=== PATIENT | female | born 1950 | race Caucasian/White ===

== ENCOUNTER 2020-12-09 20:14 | Inpatient (IN) | payer OTHER ==
--- OUTSIDE RECORDS SUMMARY | 2020-12-09 20:18 | XMS REPORT | Continuity of Care Document ---
:1950 Author Organization [facility] t Address [address] [place] [address] Care Team Providers Name Role Phone Jose Zambrano MD Primary Care Physician Borjas Attending Clinician Unavailable JULIA Attending Clinician Unavailable Doctor Unassigned, Name Attending Clinician Unavailable Mary Ann THAKUR, L Attending Clinician Payers Payer Name Policy Type Policy Effective Date Expiration Date Sour ce Number HUMANA [id number] 2020 [facility] MEDICAREHUMANA 00:00:00 Hospital MEDICARE PPO/PFFS/ERS [id number] 2020 -PresentPPO Problems Condition Condition Condition Status Onset Resolution Last Treating Co mments Source Name Details Category Date Date Treatment Clinician Date Hallux Hallux Disease Active 2017-04 [facility] valgus, valgus, 0-26 st left left 00:00: Hospita 00 l 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 Family History Family Member Diagnosis Comments Start Date Stop Date Source Natural father Cancer [facility] Natural mother Cancer [facility] Natural sister Cancer [facility] Social History Social Habit Start Date Stop Date Quantity Comments Source Tobacco use and 2020-07-15 2020-07-15 Never used [facility] exposure 00:00:00 00:00:00 Hospital Alcohol intake 2020-07-15 2020-07-15 Current [facility] 00:00:00 00:00:00 non-drinker of Hospital alcohol (finding) Tobacco Comment 2018-02-14 2018-02-14 Never used [facility] 00:00:00 00:00:00 [facility] Sex Ass[birth year] [facility] 00:00:00 00:00:00 Hospital Smoking Status Start Date Stop Date Source Never smoker [facility] Medications Ordered Filled Start Stop Current Ordering Indication Dosage Frequency Signature Comments Components Source Medication Medication Date Date Medication? Clinician (SIG) Name Name clopidogrel Yes 300mg Take 300 M ethodi (PLAVIX) 3-[address] 300 mg 13:45: mouth Hospita tablet 09 once. l metoprolol Yes 25mg Q.5D Take 25 mg M ethodi tartrate 3-[address] (LOPRESSOR) 13:45: (two) Hospi ta 25 mg 09 times a l tablet day. levothyroxi Yes 50ug QD Take 50 Met hodi ne 3-[address] (SYNTHROID, 13:45: mouth Hospi ta LEVOXYL) 50 09 every l mcg tablet morning. pantoprazol Yes 20mg QD Take 20 mg [facility] e 3-[address] (PROTONIX) 13:45: daily. Hospi ta 20 MG EC 09 l tablet pravastatin Yes 20mg QD Take 20 mg [facility] (PRAVACHOL) 3-[address] 20 MG 13:45: nightly. Hospita tablet 09 l diclofenac 2017-04 Yes Q.25D Apply Metho di (VOLTAREN) 0-[address] 1 % gel 00:00: 4 (four) Hospit a 00 times a l day. Apply 1-2 grams to affected area 3-4 times daily. Procedures Procedure Date / Time Performed Performing Clinician Skylar knight BONE DENSITY 2020-07-16 18:00:27 [facility] XR FOOT 3 VW BILATERAL 2020-07-15 13:18:38 Phil Dumont Meth odist [facility] Plan of Care Planned Activity Planned Date Details Comments Source Future Scheduled Test COVID-19 VACCINE (1) [facility] [code = COVID-19 VACCINE (1)] Future Scheduled Test Hepatitis C screening [facility] (procedure) [code = 739391339] Future Scheduled Test BREAST CANCER SCREENING [facility] [code = BREAST CANCER SCREENING] Future Scheduled Test COLONOSCOPY SCREENING [facility] [code = COLONOSCOPY SCREENING] Future Scheduled Test SHINGLES VACCINES (#1) [facility] [code = SHINGLES VACCINES (#1)] Future Scheduled Test 65+ PNEUMOCOCCAL Me [facility] VACCINE (1 of 1 - PPSV23) [code = 65+ PNEUMOCOCCAL VACCINE (1 of 1 - PPSV23)] Future Scheduled Test INFLUENZA VACCINE [code [facility] = INFLUENZA VACCINE] Encounters Start End Encounter Admission Attending Care Care Encounter Source Date/Time Date/Time Type Type Clinicians Facility Department ID 2020-08-03 2020-08-03 Nahun Borjas Shasha 1.2.840.1 [id number] [facility] 00:00:00 00:00:[address] 3.430.2.7 Hospit a .3.137748 l .8 2020-07-16 2020-07-16 Outpatient [facility] [id number] 00:00:00 00:00:[address] PHIL [address] 2020-07-15 2020-07-15 Office Julia, 1.2.840.1 [id number] Method[facility] 08:04:21 09:31:56 Visit Phil Ojeda 17338.1.[address] 3.430.2.7 Hospit a .3.185695 l .8 2020-07-15 2020-07-15 Outpatient [facility] [id number] 00:00:00 00:00:00 PHIL [address] 2020-07-15 2020-07-15 Travel 1.2.840.1 [id number] [id number] [facility] 00:00:00 00:00:[address] 3.430.2.7 0.2.7.3.698 spita .3.064210 084.8 l .8 2020-07-15 2020-07-15 Outpatient JULIA Rachel [facility] [id number] 00:00:00 00:00:00 [address] [facility] 2020-07-08 2020-07-08 Travel 1.2.840.1 [id number] [id number] Method[facility] 00:00:00 00:00:[address] 3.430.2.7 0.2.7.3.698 Ho spita .3.247308 084.8 l .8 2020-04-05 2020-04-05 Orders Doctor INDERJIT 1.2.840.114 [id number] 00:00:00 00:00:00 Only Unassigned, KENDALL 350.1.13.10 [place] [facility] 4.2.7.2.686 [id number] 2020-03-01 2020-03-01 Office Reese [facility] [id number] 13:05:45 13:58:59 Visit [facility] 350.1.13.10 Surgical 4.2.7.2.686 Specialti [id number] [address] [place] Results Test Description Test Time Test Comments Results Result [facility] e Comments SCR MAMM BILATERAL 2019-04-09 - SCR MAMM BILATERAL ALBER CAD DIGITAL 09:49:39 ALBER CAD DIGITALBILATERAL DIGITAL SCREENING MAMMOGRAM 3D/2D WITH CAD: 02/17/2019CLINICAL: Asymptomatic. Digital breast tomosynthesis was performed in addition to routine CC and MLO views. Current mammographic images were evaluated by either a [employer] M-Vu or a [employer] Image[employer] CAD (computer aided detection system). Comparison is made to exams dated 10/16/2017 mammogram, 01/13/2015 mammogram, and 09/30/2013 mammogram - [facility]. The tissue of both breasts is predominantly fatty. There is a benign calcification in the right breast. No suspicious mass, architectural distortion, malignant type calcification, or lymph node abnormality detected. Breast architecture is stable compared to prior exams.IMPRESSION: BENIGNThere is no mammographic evidence of malignancy. Resume annual screening mammography in one year. Ariel Chang M.D. et/:04/09/2019 09:49:39 Entry: - 04/09/2019 09:49:39Imaging Technologist: Sidra Gallegos MM, [employer] Mammography[employer] sent: BIRADS 1-2 Normal Mammogram BI-RADS: 2 Benign SCR MAMM BILATERAL 2019-03-06 - SCR MAMM BILATERAL ALBER CAD DIGITAL 14:36:35 ALBER CAD DIGITALBILATERAL DIGITAL SCREENING MAMMOGRAM 3D/2D WITH CAD: 02/17/2019CLINICAL: Asymptomatic. Digital breast tomosynthesis was performed in addition to routine CC and MLO views. Current mammographic images were evaluated by either a [employer] M[employer]Vu or a [employer] Image[employer] CAD (computer aided detection system). Comparison is made to exams dated 10/16/2017 mammogram, 01/13/2015 mammogram, and 09/30/2013 mammogram - [facility]. The tissue of both breasts is predominantly fatty. There is a benign calcification in the right breast. No suspicious mass, architectural distortion, malignant type calcification, or lymph node abnormality detected. Breast architecture is stable compared to prior exams.IMPRESSION: BENIGNThere is no mammographic evidence of malignancy. Resume annual screening mammography in one year. Ariel Chang M.D. et/:03/06/2019 14:36:35 Entry: - 03/06/2019 14:36:35Imaging Technologist: Sidra Gallegos MM, [employer] sent: BIRADS 1-2 Normal Mammogram BI-RADS: 2 Benign
--- NOTE | 2020-12-09 20:42 | RAD REPORT ---
EXAM DESCRIPTION: RAD - Chest Single View - 12/09/2020 8:33 pm CLINICAL HISTORY: SOB Chest pain. COMPARISON: Ct Skull/Thigh dated 08/26/2020t Skull/Thigh dated 08/26/2020; 3D SCR PADMINI BILAT W/CAD dated 08/26/2020 FINDINGS: Portable technique limits examination quality. Moderate bilateral pulmonary opacities are present most compatible with COVID-19 infection. The heart is normal in size. No displaced fractures.
[2020-12-09 20:45] LABS: Protime INR 1.15
[2020-12-09 20:52] LABS: Absolute Lymphocytes (CBC) 1.2 K/uL (0.7-4.9); Basophils % 0.2 % (0-1.3); Lymphocytes % 13.8 % (15.3-44.8); MPV 7.5 fL (7.6-11.3); RBC Red Blood Cell Count 4.75 M/uL (3.86-4.86)
[2020-12-09 22:04] LABS: ALT/SGPT 58 U/L (12-78); AST/SGOT 40 U/L (15-37); Alkaline Phosphatase 75 U/L (45-117); BUN Blood Urea Nitrogen 18 mg/dL (7-18); Bicarbonate 23 mmol/L (21-32); Bilirubin Direct 0.3 mg/dL (0-0.2); Bilirubin Total 0.6 mg/dL (0.2-1.0); Ferritin 980.3 ng/mL (8-388); Glucose Level 109 mg/dL (74-106); Magnesium 2.5 mg/dL (1.8-2.4); NT PRO-BNP 463 pg/mL (<125); Potassium 3.7 mmol/L (3.5-5.1); Protein, Total 7.6 g/dL (6.4-8.2); Sodium Level 143 mmol/L (136-145); Troponin (Emerg Dept Use Only) < 0.02 ng/mL (0.0-0.045)
--- NOTE | 2020-12-09 22:12 | P.HP ---
Certification for Inpatient Patient admitted to: Inpatient With expected LOS: >2 Midnights Patient will require the following post-hospital care: None Practitioner: I am a practitioner with admitting privileges, knowledge of patient current condition, hospital course, and medical plan of care. Services: Services provided to patient in accordance with Admission requirements found in Title 42 Section 412.3 of the Code of Federal Regulations <Chidi Hunter - Last Filed: 12/09/20 22:09> Patient History Date of Service: 12/09/20 Primary Care Provider: Out of town Reason for admission: COVID-19 pneumonia History of Present Illness: 70-year-old, hypothyroidism presents emergency department for shortness of breath. Patient reports testing positive for Covid on 12/04/2020. Patient did receive Lonnie & Lonnie vaccine. Patient was hypoxic to 60% on room air, still hypoxic at 4 L per nasal cannula at 77%. Patient currently on bubbler/high flow 15 L saturating around 90%. ED evaluation is to admit for COVID-19 pneumonia with hypoxia. - Past Medical/Surgical History -: Hypertension -: Hypothyroidism -: Thyroidectomy -: Cholecystectomy -: Hysterectomy Psychosocial/ Personal History: Lives at home with daughter - Family History Family History: Reviewed- Non-Contributory - Social History Smoking Status: Never smoker Alcohol use: No CD- Drugs: No Caffeine use: Yes Place of Residence: Home <Chidi Hunter - Last Filed: 12/09/20 22:09> Date of Service: 12/10/20 <PatriciaLudwigMatt O - Last Filed: 12/10/20 15:56> Review of Systems 10-point ROS is otherwise unremarkable General: Fever, Chills, Weakness, Malaise Respiratory: Cough, Dry, Shortness of Breath <DaleChidi - Last Filed: 12/09/20 22:09> Physical Examination - Physical Exam General: Alert, In no apparent distress, Oriented x3 HEENT: Atraumatic, PERRLA, Mucous membr. moist/pink, EOMI, Sclerae nonicteric Neck: Supple, 2+ carotid pulse no bruit, No LAD, Without JVD or thyroid abnormality Respiratory: Normal air movement, Diminished Cardiovascular: Regular rate/rhythm, Normal S1 S2 Capillary refill: <2 Seconds Gastrointestinal: Normal bowel sounds, No tenderness Musculoskeletal: No tenderness Integumentary: No rashes Neurological: Normal speech, Normal strength at 5/5 x4 extr, Normal tone, Normal affect - Studies Laboratory Data (last 24 hrs) 12/09/20 20:28: PT 13.3 H, INR 1.15 12/09/20 20:28: WBC 8.70, Hgb 15.4 H, Hct 45.0, Plt Count 238 12/09/20 20:28: Sodium 143, Potassium 3.7, BUN 18, Creatinine 0.65, Glucose 109 H, Magnesium 2.5 H, Total Bilirubin 0.6, AST 40 H, ALT 58, Alkaline Phosphatase 75 <Chidi Hunter - Last Filed: 12/09/20 22:09> - Studies Laboratory Data (last 24 hrs) 12/09/20 20:28: PT 13.3 H, INR 1.15 12/09/20 20:28: WBC 8.70, Hgb 15.4 H, Hct 45.0, Plt Count 238 12/09/20 20:28: Sodium 143, Potassium 3.7, BUN 18, Creatinine 0.65, Glucose 109 H, Magnesium 2.5 H, Total Bilirubin 0.6, AST 40 H, ALT 58, Alkaline Phosphatase 75 Microbiology Data (last 24 hrs): 12/09/20 21:04 Nasopharnyx Influenza Type A Antigen Screen - Final 12/09/20 21:04 Nasopharnyx Influenza Type B Antigen Screen - Final <Matt Gomez - Last Filed: 12/10/20 15:56> Assessment and Plan - Plan Assessment: Acute hypoxic respiratory failure secondary to COVID-19 pneumonia: Hypertension: Hypothyroidism: Plan: Acute hypoxic respiratory failure secondary to COVID-19 pneumonia: Patient vaccinated with Lonnie & Lonnie vaccine significantly hypoxic on room air even on nasal cannula. Continue with daily CRP, ferritin, D-dimer levels, IV steroids, ivermectin, baricitinib. Pulmonology consulted, supplemental oxygen as needed. Hypertension: Continue home medications Hypothyroidism: Continue home medications, check thyroid panel. DVT PPX: Eliquis Code status: Fullpatient had not determined if she would like to be on a ventilator if this was required. Reports she is going to discuss this with her daughter. Discharge Plan: Home Plan to discharge in: Greater than 2 days - Advance Directives Does patient have a Living Will: No Does patient have a Durable POA for Healthcare: No - Code Status/Comfort Care Code Status Assessed: Yes (Full code) Critical Care: No Time Spent Managing Pts Care (In Minutes): 55 <Chidi Hunter - Last Filed: 12/09/20 22:09> Physician Review: Patient Assessed, Agree with Above Assessment and Plan <Matt Gomez - Last Filed: 12/10/20 15:56>
--- NOTE | 2020-12-09 22:36 | EDPHYS ---
Physician Documentation [facility] Name: Lilly Rose Age: 70 yrs Sex: Female : 1950 Arrival Date: 12/09/2020 Time: 20:18 Bed 19 Private MD: ED Physician Bryan Sanchez HPI: 12/09 20:25 This 70 yrs old Female presents to ER via Wheelchair with complaints of cp Shortness Of Breath. 20:25 The patient has shortness of breath at rest. cp 20:25 Onset: The symptoms/episode began/occurred 10 day(s) ago, and became worse today. cp Duration: The symptoms are continuous, and are steadily getting worse. 20:25 Associated signs and symptoms: Pertinent positives: diarrhea, fever. Patient reports cp testing positive for COVID-19. Received Lonnie and Lonnie COVID vaccine in the past. Historical: - Allergies: 20:21 No Known Allergies; ms4 - PMHx: 20:21 Hypertensive disorder; Myocardial infarction; ms4 - PSHx: 20:21 None; ms4 - Immunization history:: Client reports receiving the 1st dose of the Covid vaccine. - Social history:: Smoking status: Patient denies any tobacco usage or history of. ROS: 20:28 Constitutional: Positive for body aches, poor PO intake, Negative for fever. cp 20:28 Eyes: Negative for injury, pain, redness, and discharge. cp 20:28 ENT: Negative for ear pain, sore throat, difficulty swallowing, difficulty handling secretions. 20:28 Cardiovascular: Negative for chest pain, edema, palpitations. 20:28 Respiratory: Positive for cough, shortness of breath, at rest. 20:28 Abdomen/GI: Positive for nausea, Negative for abdominal pain, vomiting, diarrhea, constipation. 20:28 Neuro: Negative for altered mental status, headache, syncope, weakness. 20:28 All other systems are negative. Exam: 20:28 ECG was reviewed by the Attending Physician. cp 20:33 Constitutional: The patient appears alert, awake, non-diaphoretic, well developed, well cp nourished, in obvious distress, moderately distressed, obviously ill. 20:33 Head/Face: Normocephalic, atraumatic. cp 20:33 Eyes: Periorbital structures: appear normal, Conjunctiva: normal, no exudate, no injection, Sclera: no appreciated abnormality, Lids and lashes: appear normal, bilaterally. 20:33 ENT: External ear(s): are unremarkable, Nose: is normal, Mouth: Lips: moist, Oral mucosa: pink and intact, moist, Posterior pharynx: Airway: no evidence of obstruction, patent. 20:33 Neck: ROM/movement: is normal, is supple, without pain, no range of motions limitations, no meningismus. 20:33 Chest/axilla: Inspection: normal, Palpation: is normal, no crepitus, no tenderness. 20:33 Cardiovascular: Rate: tachycardic, Rhythm: regular, Edema: is not appreciated, JVD: is not appreciated. 20:33 Respiratory: moderate respiratory distress is noted, Respirations: labored breathing, cp that is moderate, shallow respirations, that is moderate, Breath sounds: bronchial sounds, that are moderate, are heard diffusely, wheezing: is not appreciated. 20:33 Abdomen/GI: Inspection: abdomen appears normal, Bowel sounds: active, all quadrants, cp Palpation: abdomen is soft and non-tender, in all quadrants. 20:33 Neuro: Orientation: to person, place \T\ time. Mentation: is normal, Motor: moves all fours, strength is normal. Vital Signs: 20:18 BP 143 / 91; Pulse 152; Resp 48; Temp 99.3; Pulse Ox 77% on 4 lpm NC; Weight 83.91 kg; ms4 Height 5 ft. 5 in. (165.10 cm); 21:17 BP 106 / 73; Pulse 99; Resp 22; Pulse Ox 88% 15 lpm ; Pain 0/10; ms4 20:18 Body Mass Index 30.79 (83.91 kg, 165.10 cm) ms4 MDM: 20:26 Patient medically screened. cp 21:00 Differential diagnosis: CHF exacerbation, pneumonia, Pneumothorax pulmonary edema, cp Pulmonary Embolism Sepsis Unstable Angina. 22:35 Data reviewed: vital signs, nurses notes, lab test result(s), EKG, radiologic studies, cp plain films. 22:35 Test interpretation: by ED physician or midlevel provider: ECG, plain radiologic cp studies. Counseling: I had a detailed discussion with the patient and/or guardian regarding: the historical points, exam findings, and any diagnostic results supporting the discharge/admit diagnosis, lab results, radiology results, the need for further work-up and treatment in the hospital. Physician consultation: Chidi ASHLEY was contacted at 22:35, regarding admission, to the telemetry unit. patient's condition. 12/09 20:23 Order name: Basic Metabolic Panel cp 12/09 20:23 Order name: CBC with Diff cp 12/09 20:23 Order name: LFT's cp 12/09 20:23 Order name: Magnesium cp 12/09 20:23 Order name: NT PRO-BNP cp 12/09 20:23 Order name: PT-INR cp 12/09 20:23 Order name: Troponin (emerg Dept Use Only); Complete Time: 22:12 cp 12/09 20:23 Order name: CRP; Complete Time: 22:12 cp 12/09 22:12 Interpretation: Abnormal: C-REACTIVE PROT 87.30. cp 12/09 20:23 Order name: Ferritin; Complete Time: 22:12 cp 12/09 22:12 Interpretation: Abnormal: HAMILTON 980.3. cp 12/09 20:23 Order name: Lactate cp 12/09 20:23 Order name: Procalcitonin; Complete Time: 21:33 cp 12/09 20:23 Order name: Blood Culture Adult (2) cp 12/09 20:24 Order name: Basic Metabolic Panel; Complete Time: 22:12 EDMS 12/09 22:12 Interpretation: Normal except: CL 109; GLUC 109. cp 12/09 20:24 Order name: CBC with Automated Diff; Complete Time: 20:55 EDMS 12/09 21:39 Interpretation: Normal except: HGB 15.4; MPV 7.5; LANE% 78.3; LYM% 13.8. cp 12/09 20:24 Order name: Liver (Hepatic) Function; Complete Time: 22:12 EDMS 12/09 22:29 Interpretation: Normal except: AST 40; BILID 0.3; ALB 3.0; GLOB 4.6; A/G 0.7. cp 12/09 20:24 Order name: Magnesium; Complete Time: 22:12 EDMS 12/09 20:24 Order name: NT PRO-BNP; Complete Time: 22:12 EDMS 12/09 20:24 Order name: Protime (+INR); Complete Time: 20:55 EDMS 12/09 20:49 Order name: Influenza Screen (a \T\ B); Complete Time: 22:29 cp 12/09 22:29 Interpretation: Reviewed. cp 12/09 22:38 Order name: SARS-COV-2 RT PCR EDNH 12/10 03:41 Order name: CBC with Automated Diff EDMS 12/10 03:43 Order name: D-Dimer EDMS 12/10 03:52 Order name: Comprehensive Metabolic Panel EDMS 12/10 03:52 Order name: Lipid Profile EDMS 12/10 03:52 Order name: C-Reactive Protein EDMS 12/10 03:52 Order name: T4 Free EDMS 12/10 03:52 Order name: Magnesium EDMS 12/10 03:52 Order name: Thyroid Stimulating Hormone EDMS 12/10 03:52 Order name: Ferritin EDMS 12/09 20:23 Order name: XRAY Chest (1 view); Complete Time: 20:47 cp 12/09 20:23 Order name: EKG; Complete Time: 20:24 cp 12/09 20:23 Order name: Cardiac monitoring; Complete Time: 20:28 cp 12/09 20:23 Order name: EKG - Nurse/Tech; Complete Time: 20:28 cp 12/09 20:23 Order name: IV Saline Lock; Complete Time: 20:51 cp 12/09 20:23 Order name: Labs collected and sent; Complete Time: 20:51 cp 12/09 20:23 Order name: O2 Per Protocol; Complete Time: 20:51 cp 12/09 20:23 Order name: O2 Sat Monitoring; Complete Time: 20:51 cp 12/09 22:22 Order name: CT Chest For PE Angio cp 12/10 04:21 Order name: EKG - Nurse/Tech; Complete Time: 04:31 ms4 12/10 10:52 Order name: CT EDMS EC:28 Rate is 131 beats/min. Rhythm is irregular. NV interval is normal. QRS interval is cp normal. QT interval is normal. Interpreted by me. Reviewed by me. Administered Medications: 21:19 Drug: NS 0.9% 1000 ml Route: IV; Rate: 1 bolus; Site: right antecubital; ms4 21:19 Follow up: Response: No adverse reaction ms4 23:52 Drug: NS 0.9% 1000 ml Route: IV; Rate: 100 ml/hr; Site: right antecubital; ms4 23:53 Drug: SOLU-Medrol (methylPrednisoLONE) 125 mg Route: IVP; Site: right antecubital; ms4 Disposition Summary: 12/09/20 22:35 Hospitalization Ordered Hospitalization Status: Inpatient Admission cp Provider: Matt Gomez cp Condition: Fair cp Problem: new cp Symptoms: have improved cp Bed/Room Type: Standard cp Location: Telemetry/MedSurg (Inpatient)(12/11/20 01:14) Room Assignment: [facility](12/11/20 01:14) Diagnosis - SARS-associated coronavirus as the cause of diseases classified elsewhere cp - Other viral pneumonia cp - Acute respiratory failure with hypoxia cp Forms: - Medication Reconciliation Form cp - SBAR form cp Addendum: 12/12/2020 09:10 Co-signature as Attending Physician, Bryan Sanchez I agree with the assessment and plan s p3 of care. Signatures: Dispatcher [employer] EDMS Chidi Hunter, SAP BI ARCHITECT-C SAP BI ARCHITECT-Cla1 Dorian Ribeiro PA PA cp Kendra Swartz, RN RN Bryan Holden sp3 Karen Gaviria RN RN ms4 Corrections: (The following items were deleted from the chart) 12/09 21:23 20:50 CORONAVIRUS+.BRZ ordered. [facility] EDNH 23:31 22:35 Telemetry/MedSurg (Inpatient) [facility] 23:31 22:35 cp 12/10 02:09 12/09 20:25 Onset: The symptoms/episode began/occurred gradually, cp cp 12/11 01:14 12/09 23:31 [facility] ER HOLD cg cg 12/11 01:14 12/09 23:31 [facility]
--- NOTE | 2020-12-09 22:36 | ER ---
Nurse's Notes [facility] Name: Lilly Rose Age: 70 yrs Sex: Female : 1950 Arrival Date: 12/09/2020 Time: 20:18 Bed 19 Private MD: Diagnosis: SARS-associated coronavirus as the cause of diseases classified elsewhere;Other viral pneumonia;Acute respiratory failure with hypoxia Presentation: 12/09 20:18 Chief complaint: Patient states: shortness of breath, covid positive for 10 days, SPO2 ms4 77% on 4 LPM via NC, also reports fever and diarrhea, RT and provider notified. Coronavirus screen: Client denies travel out of the [place] in the last 14 days. difficulty breathing, nausea, shortness of breath, Client reports previous positive COVID test result. Date of collection: December 04, 2020. Ebola Screen: Patient negative for fever greater than or equal to 101.5 degrees Fahrenheit, and additional compatible Ebola Virus Disease symptoms Patient denies exposure to infectious person. Patient denies travel to an Ebola-affected area in the 21 days before illness onset. No symptoms or risks identified at this time. Initial Sepsis Screen: Does the patient meet any 2 criteria? RR > 20 per min. HR > 90 bpm. Does the patient have a suspected source of infection? Yes: Productive cough/pneumonia If YES to both, name of provider notified: Dorian COOK. Risk Assessment: Do you want to hurt yourself or someone else? Patient reports no desire to harm self or others. Onset of symptoms was December 09, 2020. 20:18 Method Of Arrival: Wheelchair ms4 20:18 Acuity: SANDI 1 ms4 Historical: - Allergies: 20:21 No Known Allergies; ms4 - PMHx: 20:21 Hypertensive disorder; Myocardial infarction; ms4 - PSHx: 20:21 None; ms4 - Immunization history:: Client reports receiving the 1st dose of the Covid vaccine. - Social history:: Smoking status: Patient denies any tobacco usage or history of. Screenin:18 Abuse screen: Denies threats or abuse. Denies injuries from another. Nutritional ms4 screening: No deficits noted. Tuberculosis screening: No symptoms or risk factors identified. Fall Risk None identified. Assessment: 21:17 General: Appears distressed, Behavior is anxious. General:. Pain: Denies pain. Neuro: ms4 No deficits noted. Cardiovascular: Rhythm is atrial fibrillation with rapid ventricular response. Respiratory: Reports shortness of breath Airway is patent Respiratory effort is labored, Breath sounds are diminished. GI: No deficits noted. : No deficits noted. Vital Signs: 20:18 BP 143 / 91; Pulse 152; Resp 48; Temp 99.3; Pulse Ox 77% on 4 lpm NC; Weight 83.91 kg; ms4 Height 5 ft. 5 in. (165.10 cm); 21:17 BP 106 / 73; Pulse 99; Resp 22; Pulse Ox 88% 15 lpm ; Pain 0/10; ms4 20:18 Body Mass Index 30.79 (83.91 kg, 165.10 cm) ms4 ED Course: 20:18 Patient arrived in ED. ms4 20:19 Bryan Sanchez is Attending Physician. sp3 20:19 Dorian Ribeiro PA is PHCP. cp 20:21 Triage completed. ms4 20:21 Arm band placed on. ms4 20:34 XRAY Chest (1 view) In Process Unspecified. EDMS 21:18 No provider procedures requiring assistance completed. Inserted saline lock: 20 gauge ms4 in right antecubital area, using aseptic technique. Blood collected. 21:18 Influenza Screen (a \T\ B) Sent. ms4 22:34 Matt Gomez MD is Hospitalizing Provider. cp Administered Medications: 21:19 Drug: NS 0.9% 1000 ml Route: IV; Rate: 1 bolus; Site: right antecubital; ms4 21:19 Follow up: Response: No adverse reaction ms4 23:52 Drug: NS 0.9% 1000 ml Route: IV; Rate: 100 ml/hr; Site: right antecubital; ms4 23:53 Drug: SOLU-Medrol (methylPrednisoLONE) 125 mg Route: IVP; Site: right antecubital; ms4 Outcome: 22:35 Decision to Hospitalize by Provider. cp 12/10 13:09 Admitted to ER Hold. Please see [facility] for further documentation. ss Instructed on 12/11 02:53 Patient left the ED. em Signatures: Dispatcher [employer] EDMS Levi Cosby RN RN em Kimberley Caputo RN RN Page, DorianJOEY goodwin cp, Setul sp3 Karen Gaviria RN RN ms4 Corrections: (The following items were deleted from the chart) 12/09 21:23 21:18 CORONAVIRUS+ drawn and sent. ms4 EDMS
[2020-12-09] MEDS ORDERED: METHYLPREDNISOLONE 125 MG INJ ONE (23:39)
[2020-12-09] MEDS ORDERED: NA CHLORIDE 0.9% 1,000 ML ONE (23:39)
[2020-12-10] MEDS ORDERED: ONDANSETRON 4 MG/2 ML VIAL IV PRN (00:14)
[2020-12-10 03:29] LABS: Absolute Lymphocytes (CBC) 0.4 K/uL (0.7-4.9); Basophils % 0.1 % (0-1.3); Lymphocytes % 6.1 % (15.3-44.8); MPV 7.4 fL (7.6-11.3); RBC Red Blood Cell Count 4.01 M/uL (3.86-4.86)
[2020-12-10 03:51] LABS: ALT/SGPT 48 U/L (12-78); AST/SGOT 28 U/L (15-37); Albumin 2.4 g/dL (3.4-5.0); Alkaline Phosphatase 64 U/L (45-117); BUN Blood Urea Nitrogen 18 mg/dL (7-18); Bicarbonate 25 mmol/L (21-32); Bilirubin Total 0.5 mg/dL (0.2-1.0); Glucose Level 146 mg/dL (74-106); HDL Cholesterol 46 mg/dL (40-60); LDL Cholesterol, Calculated 55 (<130); Magnesium 2.4 mg/dL (1.8-2.4); Potassium 4.4 mmol/L (3.5-5.1); Protein, Total 6.3 g/dL (6.4-8.2); Sodium Level 145 mmol/L (136-145)
[2020-12-10] MEDS: BARICITINIB 2 MG TABLET PO SCH (09:00)
[2020-12-10] MEDS: APIXABAN 5 MG TABLET PO SCH ×2 (09:19→21:00)
[2020-12-10] MEDS ORDERED: APIXABAN 5 MG TABLET ONE ×2 (09:21→22:03)
--- NOTE | 2020-12-10 09:24 | P.PN ---
Subjective Date of Service: 12/10/20 Primary Care Provider: Out of town Chief Complaint: COVID-19 pneumonia Subjective: Improving Review of Systems 10-point ROS is otherwise unremarkable Physical Examination - Vital Signs Temperature: 98.1 F Blood Pressure: 110/76 Pulse: 121 Respirations: 19 Pulse Ox (%): 87 - Physical Exam General: Alert, Oriented x3 HEENT: Atraumatic, Normocephalic Neck: Supple Respiratory: Diminished Cardiovascular: Regular rate/rhythm, Normal S1 S2 Gastrointestinal: Soft and benign Musculoskeletal: No swelling Neurological: Normal strength at 5/5 x4 extr, Cranial nerves 3-12 intact - Studies Laboratory Data (last 24 hrs) 12/09/20 20:28: PT 13.3 H, INR 1.15 12/09/20 20:28: WBC 8.70, Hgb 15.4 H, Hct 45.0, Plt Count 238 12/09/20 20:28: Sodium 143, Potassium 3.7, BUN 18, Creatinine 0.65, Glucose 109 H, Magnesium 2.5 H, Total Bilirubin 0.6, AST 40 H, ALT 58, Alkaline Phosphatase 75 Microbiology Data (last 24 hrs): 12/09/20 21:04 Nasopharnyx Influenza Type A Antigen Screen - Final 12/09/20 21:04 Nasopharnyx Influenza Type B Antigen Screen - Final Assessment And Plan - Plan COVID 19 disease: We will continue started steroid, vit c, melatonin and add singulair. we will continue baricitinib therapy. we will continue recs as epr pulmonary physician. Resp failure with hypoxia: we will continue supplemental oxygen. we will continue to wean off oxygen as tolerated. Hypertension: we will continue present antihypertensive meds and routine monitoring of vitals per unit protocol. Hypothyroidism: we will continue outpt management.
[2020-12-10] MEDS: METHYLPREDNISOLONE 125 MG INJ IV SCH ×3 (09:56→21:00)
--- NOTE | 2020-12-10 09:58 | P.CNS ---
Date of Consult: 12/10/20 Reason for Consult: ELBAID domenico Primary Care Provider: Out of town Chief Complaint: COVID-19 pneumonia History of Present Illness: Age 70AW COVID penumonia and resp failure Allergies No Known Allergies Allergy (Unverified 12/10/20 00:14) - Past Medical/Surgical History -: Hypertension -: Hypothyroidism -: Thyroidectomy -: Cholecystectomy -: Hysterectomy Psychosocial/ Personal History: Lives at home with daughter - Social History Alcohol use: No CD- Drugs: No Caffeine use: Yes Place of Residence: Home Review of Systems General: Weakness Respiratory: Shortness of Breath Physical Examination Temp Pulse Resp BP Pulse Ox 98.1 F 121 H 19 110/76 87 L 12/10/20 09:24 12/10/20 09:24 12/10/20 09:24 12/10/20 09:24 12/10/20 09:24 General: Alert, Oriented x3, Mild distress Laboratory Data (last 24 hrs) 12/09/20 20:28: PT 13.3 H, INR 1.15 12/09/20 20:28: WBC 8.70, Hgb 15.4 H, Hct 45.0, Plt Count 238 12/09/20 20:28: Sodium 143, Potassium 3.7, BUN 18, Creatinine 0.65, Glucose 109 H, Magnesium 2.5 H, Total Bilirubin 0.6, AST 40 H, ALT 58, Alkaline Phosphatase 75 - Problems (1) Pneumonia due to COVID-19 virus Current Visit: Yes Status: Acute Plan: age 70 AW resp failure fom COVID/ pt on high flow add steroids and aspirin
[2020-12-10] MEDS: ASPIRIN EC 81 MG TAB PO SCH (10:43)
--- NOTE | 2020-12-10 10:51 | RAD REPORT ---
EXAM DESCRIPTION: CT - Chest For Pe Angio - 12/10/2020 6:54 am COMPARISON: CT chest June 12, 2016 report only CLINICAL HISTORY: [facility] MAIN SOB TECHNIQUE: CT images through the chest with IV contrast using the pulmonary embolus protocol. Multip lanar reformats. Automated exposure control was utilized on this examination as a dose lowering techn ique. FINDINGS: Pulmonary arteries and vascular: Diagnostic quality bolus. No filling defects. Mild athero sclerosis.Heart and mediastinum: Heart size is normal. No lymphadenopathy.Thyroid gland: Out of the f [id number].Lungs: Multifocal bilateral consolidations are present.Airways: No filling defects. No b ronchiectasis.Pleura: No pneumothorax. No significant pleural effusion.Subphrenic structures: Surgica l changes of the distal esophagus and stomach with moderate-sized hiatal hernia.Musculoskeletal and s oft tissues: Within normal limits for age. IMPRESSION: 1. No evidence of pulmonary embolus. 2. Multifocal pneumonia. Commonly reported imaging features of COVID-19 pneumonia are present. Other processes such as influenza pneumonia and organizin g pneumonia, as can be seen with drug toxicity and connective tissue disease, can cause similar imagi ng pattern. Electronically signed by: Danny Kwon MD 12/09/2020 11:24 PM CDT Due to temporary technical issues with the PACS/Fluency reporting system, reports are being signed by the in house radiologist without review as a courtesy to ensure prompt reporting. The interpreting r adiologist is fully responsible for the content of the report.
[2020-12-10] MEDS ORDERED: ASPIRIN EC 81 MG TAB PO ONE (10:52)
[2020-12-10] MEDS ORDERED: METHYLPREDNISOLONE 40 MG INJ ONE ×3 (10:52→22:03)
--- NOTE | 2020-12-10 11:09 | EKG ---
Test Date: 2020-12-10 Test Time: 04:26:29 Ambulance Driver: MEASUREMENT RESULTS: Intervals: Rate: 75 DC: 150 QRSD: 74 QT: 404 QTc: 451 [place]: P: 7 DC: 150 QRS: -18 T: 0 INTERPRETIVE STATEMENTS: Normal sinus rhythm Minimal voltage criteria for LVH, may be normal variant Cannot rule out Anterior infarct, age undetermined Abnormal ECG Compared to ECG 05/08/2010 13:36:23 Left ventricular hypertrophy now present Myocardial infarct finding now present Electronically Signed On 12-10-20 11:07:26 CDT by Darrell Recinos
--- NOTE | 2020-12-10 11:09 | EKG ---
Test Date: 2020-12-09 Test Time: 20:24:07 Ceramic Coater Machine: TIMUR MEASUREMENT RESULTS: Intervals: Rate: 131 ND: 154 QRSD: 74 QT: 310 QTc: 457 [place]: P: 21 ND: 154 QRS: -17 T: 39 INTERPRETIVE STATEMENTS: Sinus tachycardia with premature supraventricular complexes Minimal voltage criteria for LVH, may be normal variant Nonspecific ST abnormality Abnormal ECG Compared to ECG 05/08/2010 13:36:23 Atrial premature complex(es) now present Left ventricular hypertrophy now present ST (T wave) deviation now present Sinus rhythm no longer present Electronically Signed On 12-10-20 11:07:33 CDT by Darrell Recinos
[2020-12-11 04:33] LABS: Absolute Lymphocytes (CBC) 0.6 K/uL (0.7-4.9); Basophils % 0.1 % (0-1.3); Hematocrit 37.3 % (36.0-45.0); Lymphocytes % 5.6 % (15.3-44.8); MPV 7.3 fL (7.6-11.3); RBC Red Blood Cell Count 3.93 M/uL (3.86-4.86)
[2020-12-11 05:20] LABS: Albumin 2.4 g/dL (3.4-5.0); Bilirubin Total 0.7 mg/dL (0.2-1.0); C-Reactive Protein 22.1 mg/L (<3.00); Magnesium 2.7 mg/dL (1.8-2.4); Potassium 4.2 mmol/L (3.5-5.1); Protein, Total 6.3 g/dL (6.4-8.2)
--- NOTE | 2020-12-11 06:32 | P.PN ---
Subjective Date of Service: 12/11/20 Primary Care Provider: Out of town Chief Complaint: COVID-19 pneumonia Subjective: Improving (Patient feels better this morning, although oxygen requirement has increased compared to yesterday. 80% 100% FiO2. CRP improved, D-dimer elevated. Feels her sense of taste is coming back.) Review of Systems 10-point ROS is otherwise unremarkable Physical Examination - Vital Signs Temperature: 97.7 F Blood Pressure: 129/71 Pulse: 71 Respirations: 20 Pulse Ox (%): 85 Assessment & Plan Physician Review Additional Text: Physical exam GEN: Alert, oriented, NAD HEENT: Normal conjunctiva, sclera anicteric CV: Regular rate and rhythm, no edema Pulm: Mildly labored respirations on 100% FiO2 HFNC ABD: Soft, nontender, nondistended Integumentary: No rashes Neuro: Normal speech, normal affect Problem list Acute hypoxemic respiratory failure secondary to COVID-19 pneumonia Hypertension Hypothyroidism Continue treatment per protocol, IV steroids, vitamin supplementation, oxygen supplementation Elevated CRP, high oxygen requirement, baricitinib started 12/10 Wean O2 as tolerated Significantly elevated inflammatory markers, improving Pulmonology consulted Patient was vaccinated with Lonnie & Lonnie vaccine in July of this year. Her immediate family are all Covid positive and recovering at home Continue home Synthroid, home antihypertensives as appropriate VTE: Eliquis Code: full Dispo: anticipate dc home in ~3days Time Spent Managing Pts Care (In Minutes): 35
[2020-12-11] MEDS: ASPIRIN EC 81 MG TAB PO SCH (09:32)
[2020-12-11] MEDS: APIXABAN 5 MG TABLET PO SCH ×2 (09:32→20:18)
[2020-12-11] MEDS: BARICITINIB 2 MG TABLET PO SCH (09:32)
[2020-12-11] MEDS: METHYLPREDNISOLONE 125 MG INJ IV SCH ×3 (09:33→20:18)
[2020-12-11] MEDS: ASCORBIC ACID 500 MG TABLET PO SCH ×3 (13:00→20:18)
[2020-12-11] MEDS: THIAMINE 200 MG/2 ML INJ IVP SCH (20:18)
[2020-12-11] MEDS: FAMOTIDINE 20 MG TAB PO SCH (20:18)
[2020-12-12 06:00] LABS: Absolute Lymphocytes (CBC) 0.9 K/uL (0.7-4.9); Basophils % 0.1 % (0-1.3); Hematocrit 38.4 % (36.0-45.0); MPV 7.6 fL (7.6-11.3); RBC Red Blood Cell Count 4.06 M/uL (3.86-4.86)
[2020-12-12 06:27] LABS: Albumin 2.6 g/dL (3.4-5.0); Bilirubin Total 0.6 mg/dL (0.2-1.0); C-Reactive Protein 5.28 mg/L (<3.00); Ferritin 677.4 ng/mL (8-388); Potassium 4.7 mmol/L (3.5-5.1); Protein, Total 6.3 g/dL (6.4-8.2)
--- NOTE | 2020-12-12 07:37 | RAD REPORT ---
EXAM DESCRIPTION: RAD - Chest Single View - 12/12/2020 7:14 am CLINICAL HISTORY: Worsening hypoxia, Covidpneumonia COMPARISON: December 09 CT chest and portable chest TECHNIQUE: AP portable chest image was obtained 12/12/2020 7:14 am . FINDINGS: Lung volumes are low. Interstitial and alveolar opacities are present but are not clearly progressive from December 09. Heart and vasculature are normal. No measurable pleural effusion and no p neumothorax. No acute bony abnormality seen. No acute aortic findings suspected. IMPRESSION: Bilateral interstitial and alveolar opacities are present not clearly different from com parison exams.
[2020-12-12] MEDS: ASPIRIN EC 81 MG TAB PO SCH ×2 (09:00→09:24)
[2020-12-12] MEDS: THIAMINE 200 MG/2 ML INJ IVP SCH (09:23)
[2020-12-12] MEDS: VITAMIN D 1000 UNIT TAB PO SCH (09:24)
[2020-12-12] MEDS: FAMOTIDINE 20 MG TAB PO SCH ×2 (09:24→21:16)
[2020-12-12] MEDS: APIXABAN 5 MG TABLET PO SCH ×2 (09:24→21:16)
[2020-12-12] MEDS: BARICITINIB 2 MG TABLET PO SCH (09:25)
[2020-12-12] MEDS: ASCORBIC ACID 500 MG TABLET PO SCH ×4 (09:25→21:16)
[2020-12-12] MEDS: METHYLPREDNISOLONE 125 MG INJ IV SCH ×3 (09:25→21:16)
[2020-12-12 10:28] LABS: Blood Morphology Comment NOT SEEN (NOT SEEN); Platelet Estimate ADEQ; White Blood Cell Scan OK (OK)
--- NOTE | 2020-12-12 15:36 | P.PN ---
Subjective Date of Service: 12/12/20 Primary Care Provider: Out of town Chief Complaint: COVID-19 pneumonia Subjective: Improving (feels better, still requiring high levels of oxygen, but feels she is breathing a little bit better, appetite improving) Review of Systems 10-point ROS is otherwise unremarkable Physical Examination - Vital Signs Temperature: 98.6 F Blood Pressure: 138/67 Pulse: 69 Respirations: 22 Pulse Ox (%): 91 Assessment & Plan Physician Review Additional Text: Physical exam GEN: Alert, oriented, NAD HEENT: Normal conjunctiva, sclera anicteric CV: Regular rate and rhythm, no edema Pulm: None labored respirations on 100% FiO2 HFNC ABD: Soft, nontender, nondistended Neuro: Normal speech, normal affect Problem list Acute hypoxemic respiratory failure secondary to COVID-19 pneumonia Hypertension Hypothyroidism Continue treatment per protocol, IV steroids, vitamin supplementation, oxygen supplementation Elevated CRP, high oxygen requirement, baricitinib started 12/10 Wean O2 as tolerated Significantly elevated inflammatory markers, improving Pulmonology consulted Patient was vaccinated with Lonnie & Lonnie vaccine in July of this year. Her immediate family are all Covid positive and recovering at home Continue home Synthroid, home antihypertensives as appropriate VTE: Eliquis Code: full Dispo: Minimal to no improvement in oxygen requirement over the last 2-3 days, may be appropriate for LTAC Time Spent Managing Pts Care (In Minutes): 40
[2020-12-12] MEDS: THIAMINE HCL 100 MG TABLET PO SCH (21:17)
[2020-12-13 00:37] VITALS: BMI 30.6
[2020-12-13 05:13] LABS: Urine Appearance CLEAR (Clear); Urine Bilirubin NEGATIVE (Negative); Urine Blood NEGATIVE (Negative); Urine Color YELLOW (Yellow); Urine Glucose NEGATIVE (Negative); Urine Protein NEGATIVE (Negative)
[2020-12-13 05:20] LABS: Urine Microscopic Reflex ORDER UMIC
[2020-12-13 05:49] LABS: Urine Mucus 1+ /HPF (NONE SEEN)
[2020-12-13 05:50] LABS: Urine Bacteria <20 /HPF (<20); Urine RBC <5 /HPF (NONE SEEN)
--- NOTE | 2020-12-13 06:34 | P.PN ---
Subjective Date of Service: 12/13/20 Primary Care Provider: Out of town Chief Complaint: COVID-19 pneumonia Subjective: Improving (Breathing more comfortably, appetite improving, overall feeling better. With some right lower abdominal muscle cramping/discomfort. Worsening with cough/sneezing, denies nausea/vomiting, positive flatus) Review of Systems 10-point ROS is otherwise unremarkable Physical Examination - Vital Signs Temperature: 96.7 F Blood Pressure: 117/66 Pulse: 84 Respirations: 18 Pulse Ox (%): 90 Assessment & Plan Physician Review Additional Text: Physical exam GEN: Alert, oriented, NAD HEENT: Normal conjunctiva, sclera anicteric CV: Regular rate and rhythm, no edema Pulm: None labored respirations on 100% FiO2 HFNC ABD: Soft, nondistended, mild tenderness right lower quadrant Neuro: Normal speech, normal affect Problem list Acute hypoxemic respiratory failure secondary to COVID-19 pneumonia Hypertension Hypothyroidism Continue treatment per protocol, IV steroids, vitamin supplementation, oxygen supplementation Elevated CRP, high oxygen requirement, baricitinib started 12/10 Wean O2 as tolerated Significantly elevated inflammatory markers, improving Pulmonology consulted Patient was vaccinated with Lonnie & Lonnie vaccine in July of this year. Her immediate family are all Covid positive and recovering at home Continue home Synthroid, home antihypertensives as appropriate Right lower quadrant pain appears muscular in nature, no other signs or evidence of intestinal infection will monitor VTE: Eliquis Code: full Dispo: Mild improvement in oxygen requirement over the last 2-3 days, may be appropriate for LTAC Time Spent Managing Pts Care (In Minutes): 40
[2020-12-13 07:20] LABS: Absolute Lymphocytes (CBC) 0.6 K/uL (0.7-4.9); Basophils % 0.1 % (0-1.3); Hematocrit 38.4 % (36.0-45.0); Lymphocytes % 3.5 % (15.3-44.8); MPV 7.5 fL (7.6-11.3); RBC Red Blood Cell Count 4.03 M/uL (3.86-4.86)
[2020-12-13 07:36] LABS: BUN Blood Urea Nitrogen 33 mg/dL (7-18); Bicarbonate 28 mmol/L (21-32); Ferritin 585.1 ng/mL (8-388); Glucose Level 126 mg/dL (74-106); Potassium 4.2 mmol/L (3.5-5.1); Sodium Level 144 mmol/L (136-145)
[2020-12-13 07:43] LABS: C-Reactive Protein < 2.90 mg/L (<3.00)
[2020-12-13 08:12] LABS: Blood Morphology Comment NOT SEEN (NOT SEEN); Platelet Estimate ADEQ
[2020-12-13] MEDS: ACETAMINOPHEN 500 MG TAB PO PRN ×2 (09:37→20:46)
[2020-12-13] MEDS: VITAMIN D 1000 UNIT TAB PO SCH (09:38)
[2020-12-13] MEDS: METHYLPREDNISOLONE 125 MG INJ IV SCH ×3 (09:39→20:22)
[2020-12-13] MEDS: BARICITINIB 2 MG TABLET PO SCH (09:39)
[2020-12-13] MEDS: FAMOTIDINE 20 MG TAB PO SCH ×2 (09:40→20:22)
[2020-12-13] MEDS: THIAMINE HCL 100 MG TABLET PO SCH ×2 (09:40→20:22)
[2020-12-13] MEDS: APIXABAN 5 MG TABLET PO SCH ×2 (09:40→20:22)
[2020-12-13] MEDS: ASCORBIC ACID 500 MG TABLET PO SCH ×4 (09:40→20:22)
[2020-12-13] MEDS: ASPIRIN EC 81 MG TAB PO SCH (09:46)
[2020-12-14] MEDS ORDERED: DIPHENHYDRAMINE 12.5MG/5ML LIQ PO ONE (00:44)
[2020-12-14] MEDS ORDERED: DIPHENHYDRAMINE 25 MG TAB/CAP ONE (01:15)
[2020-12-14 03:51] LABS: Absolute Lymphocytes (CBC) 0.7 K/uL (0.7-4.9); Hematocrit 37.7 % (36.0-45.0); Lymphocytes % 4.1 % (15.3-44.8); MPV 7.8 fL (7.6-11.3); RBC Red Blood Cell Count 3.98 M/uL (3.86-4.86)
[2020-12-14 04:16] LABS: BUN Blood Urea Nitrogen 32 mg/dL (7-18); Bicarbonate 26 mmol/L (21-32); Glucose Level 164 mg/dL (74-106); Potassium 5.1 mmol/L (3.5-5.1); Sodium Level 143 mmol/L (136-145)
[2020-12-14 04:23] LABS: C-Reactive Protein < 2.90 mg/L (<3.00)
[2020-12-14] MEDS: ASPIRIN EC 81 MG TAB PO SCH (10:08)
[2020-12-14] MEDS: VITAMIN D 1000 UNIT TAB PO SCH (10:08)
[2020-12-14] MEDS: APIXABAN 5 MG TABLET PO SCH ×2 (10:08→20:45)
[2020-12-14] MEDS: THIAMINE HCL 100 MG TABLET PO SCH ×2 (10:09→20:45)
[2020-12-14] MEDS: FAMOTIDINE 20 MG TAB PO SCH ×2 (10:09→20:45)
[2020-12-14] MEDS: METHYLPREDNISOLONE 125 MG INJ IV SCH ×3 (10:09→20:44)
[2020-12-14] MEDS: ASCORBIC ACID 500 MG TABLET PO SCH ×4 (10:09→20:44)
[2020-12-14] MEDS: BARICITINIB 2 MG TABLET PO SCH (10:12)
[2020-12-14] MEDS ORDERED: HYDROCODONE/APAP 7.5/325 MG TAB PO PRN (13:38)
--- NOTE | 2020-12-14 13:44 | P.PN ---
Subjective Date of Service: 12/14/20 Primary Care Provider: Out of town Chief Complaint: COVID-19 pneumonia Patient complaining of generalized body pains. She is maintained on high-flow oxygen. Physical Examination - Vital Signs Temperature: 99.9 F Blood Pressure: 134/63 Pulse: 63 Respirations: 24 Pulse Ox (%): 94 - Physical Exam General: Alert, In no apparent distress HEENT: Other (High-flow oxygen) Neck: JVD not distended Respiratory: Other (Nonlabored breathing) Cardiovascular: Regular rate/rhythm, Normal S1 S2 Gastrointestinal: Soft and benign, Non-distended Musculoskeletal: No swelling Integumentary: No rashes Neurological: Normal strength at 5/5 x4 extr Assessment And Plan Physician Review: Patient Assessed, Agree with Above Assessment and Plan Physician Review Additional Text: Acute hypoxemic respiratory failure secondary to COVID-19 pneumonia Hypertension Hypothyroidism CAD Continue COVID treatment per protocol, IV steroids, vitamin supplementation, oxygen supplementation Patient requiring high-flow. baricitinib started 12/10 Wean O2 as tolerated Patient was vaccinated with Lonnie & Lonnie vaccine in July of this year. Her immediate family are all Covid positive and recovering at home Continue home Synthroid, home antihypertensives as appropriate Right lower quadrant pain appears muscular in nature, no other signs or evidence of intestinal infection will monitor. Patient with a history of chronic pain on [place] at home. Resume [place] Resume home CAD medications. VTE: Eliquis Code: full
[2020-12-14] MEDS: ATORVASTATIN 10 MG TAB PO SCH (20:44)
[2020-12-14] MEDS ORDERED: PANTOPRAZOLE 40MG TABLET PO SCH (21:00)
[2020-12-15] MEDS: LEVOTHYROXINE SOD 0.112 MG TAB PO SCH (05:33)
[2020-12-15] MEDS: ASPIRIN EC 81 MG TAB PO SCH (09:00)
[2020-12-15] MEDS: METHYLPREDNISOLONE 125 MG INJ IV SCH ×3 (09:11→20:00)
[2020-12-15] MEDS: VITAMIN D 1000 UNIT TAB PO SCH (09:12)
[2020-12-15] MEDS: THIAMINE HCL 100 MG TABLET PO SCH ×2 (09:12→19:58)
[2020-12-15] MEDS: MULTIVITAMIN TAB PO SCH (09:12)
[2020-12-15] MEDS: APIXABAN 5 MG TABLET PO SCH ×2 (09:12→19:59)
[2020-12-15] MEDS: FERROUS SULFATE 325 MG TAB PO SCH (09:13)
[2020-12-15] MEDS: FAMOTIDINE 20 MG TAB PO SCH ×2 (09:13→19:59)
[2020-12-15] MEDS: BARICITINIB 2 MG TABLET PO SCH (09:13)
[2020-12-15] MEDS: CALCIUM 250 MG/VITAMIN D 125 IU TAB PO SCH (09:13)
[2020-12-15] MEDS: CLOPIDOGREL 75 MG TABLET PO SCH (09:13)
[2020-12-15] MEDS: AMLODIPINE 5 MG TAB PO SCH (09:14)
[2020-12-15] MEDS: ASCORBIC ACID 500 MG TABLET PO SCH ×4 (09:15→19:59)
--- NOTE | 2020-12-15 15:10 | P.PN ---
Subjective Date of Service: 12/15/20 Primary Care Provider: Out of town Chief Complaint: COVID-19 pneumonia She is maintained on high-flow oxygen. No new complain. Physical Examination - Vital Signs Temperature: 97.2 F Blood Pressure: 107/55 Pulse: 80 Respirations: 24 Pulse Ox (%): 90 - Physical Exam General: Alert, In no apparent distress Neck: JVD not distended Respiratory: Other (Nonlabored breathing) Cardiovascular: Regular rate/rhythm, Normal S1 S2 Gastrointestinal: Soft and benign, Non-distended Musculoskeletal: No swelling Integumentary: No rashes Neurological: Normal strength at 5/5 x4 extr - Studies Microbiology Data (last 24 hrs): 12/09/20 20:28 Blood - Blood Aerobic Blood Culture - Final No growth in 5 days. 12/09/20 20:28 Blood - Blood Anaerobic Blood Culture - Final No growth in 5 days. 12/09/20 20:28 Blood - Blood Aerobic Blood Culture - Final No growth in 5 days. 12/09/20 20:28 Blood - Blood Anaerobic Blood Culture - Final No growth in 5 days. Assessment And Plan Physician Review: Patient Assessed, Agree with Above Assessment and Plan Physician Review Additional Text: Acute hypoxemic respiratory failure secondary to COVID-19 pneumonia Hypertension Hypothyroidism CAD Continue COVID treatment per protocol, IV steroids, vitamin supplementation, oxygen supplementation Patient on high-flow. Baricitinib started 12/10 Wean O2 as tolerated Patient was vaccinated with Lonnie & Lonnie vaccine in July of this year. Continue home Synthroid, home antihypertensives as appropriate Right lower quadrant pain appears muscular in nature, no other signs or evidence of intestinal infection will monitor. Patient with a history of chronic pain on [place] at home. Continue [place] Continue CAD medications. VTE: Eliquis Code: full
[2020-12-15] MEDS: ATORVASTATIN 10 MG TAB PO SCH (19:58)
[2020-12-16 04:03] LABS: Absolute Lymphocytes (CBC) 0.4 K/uL (0.7-4.9); Basophils % 0.3 % (0-1.3); Lymphocytes % 2.3 % (15.3-44.8); MPV 7.8 fL (7.6-11.3); RBC Red Blood Cell Count 4.13 M/uL (3.86-4.86)
[2020-12-16 04:11] LABS: Potassium 5.5 mmol/L (3.5-5.1)
[2020-12-16] MEDS: LEVOTHYROXINE SOD 0.112 MG TAB PO SCH (05:40)
[2020-12-16] MEDS: VITAMIN D 1000 UNIT TAB PO SCH (09:00)
[2020-12-16] MEDS: THIAMINE HCL 100 MG TABLET PO SCH ×2 (09:00→20:46)
[2020-12-16] MEDS: FERROUS SULFATE 325 MG TAB PO SCH (09:00)
[2020-12-16] MEDS: METHYLPREDNISOLONE 125 MG INJ IV SCH ×2 (09:22→22:17)
[2020-12-16] MEDS: ASPIRIN EC 81 MG TAB PO SCH (09:22)
[2020-12-16] MEDS: AMLODIPINE 5 MG TAB PO SCH (09:22)
[2020-12-16] MEDS: MULTIVITAMIN TAB PO SCH (09:23)
[2020-12-16] MEDS: ASCORBIC ACID 500 MG TABLET PO SCH ×4 (09:23→20:46)
[2020-12-16] MEDS: APIXABAN 5 MG TABLET PO SCH ×2 (09:23→20:46)
[2020-12-16] MEDS: FAMOTIDINE 20 MG TAB PO SCH ×2 (09:23→20:46)
[2020-12-16] MEDS: CLOPIDOGREL 75 MG TABLET PO SCH (09:23)
[2020-12-16] MEDS: CALCIUM 250 MG/VITAMIN D 125 IU TAB PO SCH ×2 (11:28→11:32)
[2020-12-16] MEDS: BARICITINIB 2 MG TABLET PO SCH (11:32)
--- NOTE | 2020-12-16 19:40 | P.PN ---
Subjective Date of Service: 12/16/20 Primary Care Provider: Out of town Chief Complaint: COVID-19 pneumonia She is maintained on high-flow oxygen. No new complain. Physical Examination - Vital Signs Temperature: 97.9 F Blood Pressure: 106/58 Pulse: 80 Respirations: 20 Pulse Ox (%): 92 Assessment And Plan Physician Review: Patient Assessed, Agree with Above Assessment and Plan Physician Review Additional Text: Physical exam GEN: Alert, oriented, NAD HEENT: Normal conjunctiva, sclera anicteric CV: Regular rate and rhythm, no edema Pulm: None labored respirations on 100% FiO2 HFNC ABD: Soft, nondistended. Neuro: Normal speech, normal affect Acute hypoxemic respiratory failure secondary to COVID-19 pneumonia Hypertension Hypothyroidism CAD Continue COVID treatment per protocol, IV steroids, vitamin supplementation, oxygen supplementation Patient on high-flow. Baricitinib started 12/10 Wean O2 as tolerated Patient was vaccinated with Lonnie & Lonnie vaccine in July of this year. Continue home Synthroid, home antihypertensives as appropriate Patient with a history of chronic pain on [place] at home. Continue [place] Continue CAD medications. VTE: Eliquis Code: full
[2020-12-16] MEDS: DOCUSATE NA 100 MG CAP PO PRN (20:45)
[2020-12-16] MEDS: POLYETHYL GLY 3350 17 GM/DOSE PO PRN (20:45)
[2020-12-16] MEDS: ATORVASTATIN 10 MG TAB PO SCH (20:46)
[2020-12-17] MEDS: LEVOTHYROXINE SOD 0.112 MG TAB PO SCH (05:54)
[2020-12-17] MEDS: POLYETHYL GLY 3350 17 GM/DOSE PO PRN (06:33)
[2020-12-17] MEDS: DOCUSATE NA 100 MG CAP PO PRN (06:33)
[2020-12-17] MEDS: FAMOTIDINE 20 MG TAB PO SCH ×2 (09:00→20:24)
[2020-12-17] MEDS: VITAMIN D 1000 UNIT TAB PO SCH (09:46)
[2020-12-17] MEDS: ASCORBIC ACID 500 MG TABLET PO SCH ×4 (09:47→20:24)
[2020-12-17] MEDS: AMLODIPINE 5 MG TAB PO SCH (09:47)
[2020-12-17] MEDS: MULTIVITAMIN TAB PO SCH (09:47)
[2020-12-17] MEDS: ASPIRIN EC 81 MG TAB PO SCH (09:47)
[2020-12-17] MEDS: CLOPIDOGREL 75 MG TABLET PO SCH (09:47)
[2020-12-17] MEDS: THIAMINE HCL 100 MG TABLET PO SCH ×2 (09:47→20:24)
[2020-12-17] MEDS: APIXABAN 5 MG TABLET PO SCH ×2 (09:47→20:24)
[2020-12-17] MEDS: METHYLPREDNISOLONE 125 MG INJ IV SCH ×2 (09:47→20:25)
[2020-12-17] MEDS: FERROUS SULFATE 325 MG TAB PO SCH (09:47)
[2020-12-17] MEDS: BARICITINIB 2 MG TABLET PO SCH (11:45)
--- NOTE | 2020-12-17 16:43 | P.PN ---
Subjective Date of Service: 12/17/20 Primary Care Provider: Out of town Chief Complaint: COVID-19 pneumonia Patient still requiring high concentrations of oxygen Review of Systems General: Weakness Respiratory: Shortness of Breath Physical Examination - Vital Signs Temperature: 97.4 F Blood Pressure: 127/62 Pulse: 62 Respirations: 24 Pulse Ox (%): 97 Assessment & Plan - Problems (Diagnosis) (1) Pneumonia due to COVID-19 virus Current Visit: Yes Status: Acute Plan: Respiratory failure from coronavirus patient is now hyperkalemic on max therapy patient was vaccinated with Lonnie & Lonnie in July 22 dose of Kayexalate labs ordered for tomorrow Physician Review: Patient Assessed, Agree with Above Assessment and Plan
[2020-12-17] MEDS ORDERED: SOD POLYSTYREN SUL 15 GM/60 ML UCUP PO ONE (17:00)
--- NOTE | 2020-12-17 17:39 | P.PN ---
Subjective Date of Service: 12/17/20 Primary Care Provider: Out of town Chief Complaint: COVID-19 pneumonia She is maintained on high-flow oxygen. No new complain. No major changes from yesterday. Physical Examination - Vital Signs Temperature: 97.4 F Blood Pressure: 127/62 Pulse: 62 Respirations: 24 Pulse Ox (%): 97 - Physical Exam General: Oriented x3 HEENT: Mucous membr. moist/pink Neck: JVD not distended Respiratory: Other (Nonlabored breathing) Cardiovascular: Regular rate/rhythm, Normal S1 S2 Gastrointestinal: Soft and benign, Non-distended Musculoskeletal: No swelling Integumentary: No breakdown Neurological: Normal strength at 5/5 x4 extr Assessment And Plan Physician Review: Patient Assessed, Agree with Above Assessment and Plan Physician Review Additional Text: Physical exam GEN: Alert, oriented, NAD HEENT: Normal conjunctiva, sclera anicteric CV: Regular rate and rhythm, no edema Pulm: None labored respirations on 100% FiO2 HFNC ABD: Soft, nondistended. Neuro: Normal speech, normal affect Acute hypoxemic respiratory failure secondary to COVID-19 pneumonia Hypertension Hypothyroidism CAD Continue COVID treatment per protocol, IV steroids, vitamin supplementation, ox ygen supplementation Patient on high-flow. Baricitinib started 12/10 Wean O2 as tolerated Status post Lonnie & Lonnie vaccine in July of this year. Continue home Synthroid, home antihypertensives as appropriate Patient with a history of chronic pain on [place] at home. Continue [place] Continue CAD medications. VTE: Eliquis Code: full
[2020-12-17] MEDS: ATORVASTATIN 10 MG TAB PO SCH (20:24)
[2020-12-17] MEDS: BENZONATATE 100 MG CAP PO PRN (21:46)
[2020-12-18] MEDS: LEVOTHYROXINE SOD 0.112 MG TAB PO SCH (05:36)
[2020-12-18] MEDS: POLYETHYL GLY 3350 17 GM/DOSE PO PRN (06:18)
[2020-12-18] MEDS: DOCUSATE NA 100 MG CAP PO PRN (06:18)
[2020-12-18 08:15] LABS: Absolute Lymphocytes (CBC) 0.4 K/uL (0.7-4.9); Basophils % 0.1 % (0-1.3); Hematocrit 39.3 % (36.0-45.0); Lymphocytes % 2.4 % (15.3-44.8); MPV 8.1 fL (7.6-11.3); RBC Red Blood Cell Count 4.13 M/uL (3.86-4.86)
[2020-12-18 08:29] LABS: Bicarbonate 30 mmol/L (21-32); Glucose Level 121 mg/dL (74-106); Potassium 4.7 mmol/L (3.5-5.1); Sodium Level 140 mmol/L (136-145)
[2020-12-18 08:30] LABS: BUN Blood Urea Nitrogen 27 mg/dL (7-18)
[2020-12-18] MEDS: ASPIRIN EC 81 MG TAB PO SCH ×2 (09:00→10:38)
[2020-12-18] MEDS: METHYLPREDNISOLONE 125 MG INJ IV SCH ×2 (10:12→20:52)
[2020-12-18] MEDS: AMLODIPINE 5 MG TAB PO SCH (10:13)
[2020-12-18] MEDS: FERROUS SULFATE 325 MG TAB PO SCH (10:13)
[2020-12-18] MEDS: VITAMIN D 1000 UNIT TAB PO SCH (10:13)
[2020-12-18] MEDS: ASCORBIC ACID 500 MG TABLET PO SCH ×4 (10:13→20:52)
[2020-12-18] MEDS: FAMOTIDINE 20 MG TAB PO SCH ×2 (10:13→20:51)
[2020-12-18] MEDS: THIAMINE HCL 100 MG TABLET PO SCH ×2 (10:13→20:51)
[2020-12-18] MEDS: MULTIVITAMIN TAB PO SCH (10:14)
[2020-12-18] MEDS: CLOPIDOGREL 75 MG TABLET PO SCH (10:14)
[2020-12-18] MEDS: CALCIUM 250 MG/VITAMIN D 125 IU TAB PO SCH (10:14)
[2020-12-18 10:20] LABS: Blood Morphology Comment NOT SEEN (NOT SEEN); Platelet Estimate ADEQ; White Blood Cell Scan OK (OK)
[2020-12-18] MEDS: APIXABAN 5 MG TABLET PO SCH ×2 (10:38→20:51)
[2020-12-18] MEDS: BARICITINIB 2 MG TABLET PO SCH (10:38)
--- NOTE | 2020-12-18 10:47 | RAD REPORT ---
EXAM DESCRIPTION: RAD - Chest Single View - 12/18/2020 7:11 am CLINICAL HISTORY: Coronavirus pneumonia Chest pain. COMPARISON: Chest Single View dated 12/12/2020; Chest Single View dated 12/09/2020 FINDINGS: Portable technique limits examination quality. Since 12/12/2020, there has been moderate worsening in bilateral alveolar pulmonary infiltrates, slig htly greater on the right. The heart is normal in size. No displaced fractures. IMPRESSION: Moderate worsening in lung aeration is seen since 12/12/2020.
--- NOTE | 2020-12-18 15:17 | P.PN ---
Subjective Date of Service: 12/18/20 Primary Care Provider: Out of town Chief Complaint: COVID-19 pneumonia She is maintained on high-flow oxygen. Patient has no new complain. Slowly weaning down FiO2. Physical Examination - Vital Signs Temperature: 97.8 F Blood Pressure: 132/66 Pulse: 62 Respirations: 22 Pulse Ox (%): 94 - Physical Exam General: In no apparent distress, Oriented x3 HEENT: Sclerae nonicteric Neck: JVD not distended Respiratory: Other (Nonlabored breathing) Cardiovascular: Normal pulses, Regular rate/rhythm Gastrointestinal: Soft and benign, Non-distended Musculoskeletal: No swelling Integumentary: No rashes Neurological: Normal strength at 5/5 x4 extr Assessment And Plan Physician Review: Patient Assessed, Agree with Above Assessment and Plan Physician Review Additional Text: Physical exam GEN: Alert, oriented, NAD HEENT: Normal conjunctiva, sclera anicteric CV: Regular rate and rhythm, no edema Pulm: None labored respirations on 100% FiO2 HFNC ABD: Soft, nondistended. Neuro: Normal speech, normal affect Acute hypoxemic respiratory failure secondary to COVID-19 pneumonia Hypertension Hypothyroidism CAD Chronic pain syndrome. Continue COVID treatment per protocol, IV steroids, vitamin supplementation, oxygen supplementation Patient on high-flow. Baricitinib started 12/10 Wean O2 as tolerated Status post Lonnie & Lonnie vaccine in July of this year. Continue home Synthroid, home antihypertensives as appropriate Continue [place] Continue CAD medications. VTE: Eliquis Code: full
[2020-12-18] MEDS: levoFLOXacin 500 MG TAB PO SCH (15:23)
[2020-12-18] MEDS: BENZONATATE 100 MG CAP PO PRN (18:13)
[2020-12-18] MEDS: ATORVASTATIN 10 MG TAB PO SCH (20:51)
[2020-12-19] MEDS: LEVOTHYROXINE SOD 0.112 MG TAB PO SCH (05:57)
[2020-12-19] MEDS: MULTIVITAMIN TAB PO SCH ×2 (09:00→09:13)
[2020-12-19] MEDS: AMLODIPINE 5 MG TAB PO SCH (09:13)
[2020-12-19] MEDS: VITAMIN D 1000 UNIT TAB PO SCH (09:13)
[2020-12-19] MEDS: THIAMINE HCL 100 MG TABLET PO SCH ×2 (09:13→19:36)
[2020-12-19] MEDS: BARICITINIB 2 MG TABLET PO SCH (09:13)
[2020-12-19] MEDS: CALCIUM 250 MG/VITAMIN D 125 IU TAB PO SCH (09:13)
[2020-12-19] MEDS: FERROUS SULFATE 325 MG TAB PO SCH (09:13)
[2020-12-19] MEDS: APIXABAN 5 MG TABLET PO SCH ×2 (09:14→19:36)
[2020-12-19] MEDS: ASCORBIC ACID 500 MG TABLET PO SCH ×4 (09:14→19:36)
[2020-12-19] MEDS: METHYLPREDNISOLONE 125 MG INJ IV SCH ×2 (09:14→19:39)
[2020-12-19] MEDS: FAMOTIDINE 20 MG TAB PO SCH ×2 (09:14→19:38)
[2020-12-19] MEDS: levoFLOXacin 500 MG TAB PO SCH (09:14)
--- NOTE | 2020-12-19 11:50 | P.PN ---
Subjective Date of Service: 12/19/20 Primary Care Provider: Out of town Chief Complaint: COVID-19 pneumonia No change still requiring high concentrations of oxygen Review of Systems General: Weakness Respiratory: Shortness of Breath Physical Examination - Vital Signs Temperature: 97.3 F Blood Pressure: 102/59 Pulse: 78 Respirations: 26 Pulse Ox (%): 95 - Physical Exam General: Alert, Oriented x3, Cooperative Assessment & Plan - Problems (Diagnosis) (1) Pneumonia due to COVID-19 virus Current Visit: Yes Status: Acute Plan: Respiratory failure white count elevated but declining on max therapy vital signs stable on FiO2 of 85% Physician Review: Patient Assessed, Agree with Above Assessment and Plan
--- NOTE | 2020-12-19 13:56 | P.PN ---
Subjective Date of Service: 12/19/20 Primary Care Provider: Out of town Chief Complaint: COVID-19 pneumonia She is maintained on high-flow oxygen. Patient has no new complain. Physical Examination - Vital Signs Temperature: 97.3 F Blood Pressure: 102/59 Pulse: 78 Respirations: 26 Pulse Ox (%): 95 - Physical Exam General: Alert, In no apparent distress HEENT: Mucous membr. moist/pink Neck: JVD not distended Respiratory: Other (Nonlabored breathing.) Cardiovascular: Regular rate/rhythm, Normal S1 S2 Gastrointestinal: Soft and benign, Non-distended Musculoskeletal: No swelling Integumentary: No rashes Neurological: Normal strength at 5/5 x4 extr Assessment And Plan Physician Review: Patient Assessed, Agree with Above Assessment and Plan Physician Review Additional Text: Physical exam GEN: Alert, oriented, NAD HEENT: Normal conjunctiva, sclera anicteric CV: Regular rate and rhythm, no edema Pulm: None labored respirations on 100% FiO2 HFNC ABD: Soft, nondistended. Neuro: Normal speech, normal affect Acute hypoxemic respiratory failure secondary to COVID-19 pneumonia Hypertension Hypothyroidism CAD Chronic pain syndrome. Continue IV steroids, vitamin supplementation, oxygen supplementation Patient on high-flow. Baricitinib started 12/10 Wean O2 as tolerated Status post Lonnie & Lonnie vaccine in July of this year. Continue home Synthroid, home antihypertensives as appropriate Continue [place] Continue CAD medications. VTE: Eliquis Code: full
[2020-12-19] MEDS: ATORVASTATIN 10 MG TAB PO SCH (19:36)
[2020-12-20] MEDS: LEVOTHYROXINE SOD 0.112 MG TAB PO SCH (05:01)
[2020-12-20 06:12] LABS: Absolute Lymphocytes (CBC) 0.4 K/uL (0.7-4.9); Basophils % 0.1 % (0-1.3); Hematocrit 37.3 % (36.0-45.0); Lymphocytes % 3.1 % (15.3-44.8); RBC Red Blood Cell Count 3.97 M/uL (3.86-4.86)
[2020-12-20 06:25] LABS: Potassium 5.3 mmol/L (3.5-5.1)
[2020-12-20] MEDS: APIXABAN 5 MG TABLET PO SCH ×3 (08:28→19:38)
[2020-12-20] MEDS: VITAMIN D 1000 UNIT TAB PO SCH (08:29)
[2020-12-20] MEDS: BARICITINIB 2 MG TABLET PO SCH (08:29)
[2020-12-20] MEDS: METHYLPREDNISOLONE 125 MG INJ IV SCH ×2 (08:29→19:37)
[2020-12-20] MEDS: FERROUS SULFATE 325 MG TAB PO SCH (08:30)
[2020-12-20] MEDS: AMLODIPINE 5 MG TAB PO SCH (08:30)
[2020-12-20] MEDS: CLOPIDOGREL 75 MG TABLET PO SCH (08:30)
[2020-12-20] MEDS: FAMOTIDINE 20 MG TAB PO SCH ×2 (08:30→19:38)
[2020-12-20] MEDS: MULTIVITAMIN TAB PO SCH (08:30)
[2020-12-20] MEDS: levoFLOXacin 500 MG TAB PO SCH (08:30)
[2020-12-20] MEDS: ASCORBIC ACID 500 MG TABLET PO SCH ×4 (08:31→19:38)
[2020-12-20] MEDS: CALCIUM 250 MG/VITAMIN D 125 IU TAB PO SCH (08:31)
[2020-12-20] MEDS: THIAMINE HCL 100 MG TABLET PO SCH ×2 (08:31→19:37)
[2020-12-20] MEDS: ASPIRIN EC 81 MG TAB PO SCH (09:00)
--- NOTE | 2020-12-20 16:12 | P.PN ---
Subjective Date of Service: 12/20/20 Primary Care Provider: Out of town Chief Complaint: COVID-19 pneumonia She is maintained on high-flow oxygen. Weaning down FiO2 and oxygen flow slowly. Patient has no complain. She reports dyspnea only with exertion and not a rest. Physical Examination - Vital Signs Temperature: 97.7 F Blood Pressure: 108/70 Pulse: 72 Respirations: 26 Pulse Ox (%): 94 - Physical Exam General: Alert, In no apparent distress Neck: JVD not distended Respiratory: Other (Nonlabored breathing) Cardiovascular: Regular rate/rhythm, Normal S1 S2 Gastrointestinal: Soft and benign, Non-distended, No tenderness Musculoskeletal: No swelling Integumentary: No breakdown Neurological: Normal strength at 5/5 x4 extr Assessment And Plan Physician Review: Patient Assessed, Agree with Above Assessment and Plan Physician Review Additional Text: Physical exam GEN: Alert, oriented, NAD HEENT: Normal conjunctiva, sclera anicteric CV: Regular rate and rhythm, no edema Pulm: None labored respirations on 100% FiO2 HFNC ABD: Soft, nondistended. Neuro: Normal speech, normal affect Acute hypoxemic respiratory failure secondary to COVID-19 pneumonia Hypertension Hypothyroidism CAD Chronic pain syndrome. Continue IV steroids, vitamin supplementation,. Patient on high-flow. Baricitinib started 12/10 Wean O2 as tolerated Status post Lonnie & Lonnie vaccine in July of this year. Continue home Synthroid, home antihypertensives as appropriate Continue [place] Continue other home medications. VTE: Eliquis Code: full
[2020-12-20] MEDS ORDERED: SOD POLYSTYREN SUL 15 GM/60 ML UCUP PO ONE (16:13)
[2020-12-20] MEDS: ATORVASTATIN 10 MG TAB PO SCH (19:37)
[2020-12-20] MEDS: SOD CHLORIDE 0.65% NASAL SPRAY NAS SCH (19:38)
[2020-12-20] MEDS: HYDROCODONE/APAP 7.5/325 MG TAB PO PRN (21:00)
[2020-12-21] MEDS: LEVOTHYROXINE SOD 0.112 MG TAB PO SCH (05:10)
[2020-12-21 05:54] LABS: Absolute Lymphocytes (CBC) 0.5 K/uL (0.7-4.9); Basophils % 0.2 % (0-1.3); Hematocrit 39.9 % (36.0-45.0); Lymphocytes % 3.6 % (15.3-44.8); MPV 7.7 fL (7.6-11.3); RBC Red Blood Cell Count 4.22 M/uL (3.86-4.86)
[2020-12-21 06:08] LABS: Magnesium 2.7 mg/dL (1.8-2.4)
[2020-12-21] MEDS: SOD CHLORIDE 0.65% NASAL SPRAY NAS SCH ×2 (09:00→19:47)
[2020-12-21] MEDS: VITAMIN D 1000 UNIT TAB PO SCH (09:58)
[2020-12-21] MEDS: ASCORBIC ACID 500 MG TABLET PO SCH ×4 (10:00→19:46)
[2020-12-21] MEDS: FAMOTIDINE 20 MG TAB PO SCH ×2 (10:00→19:46)
[2020-12-21] MEDS: AMLODIPINE 5 MG TAB PO SCH (10:00)
[2020-12-21] MEDS: levoFLOXacin 500 MG TAB PO SCH (10:00)
[2020-12-21] MEDS: ASPIRIN EC 81 MG TAB PO SCH (10:00)
[2020-12-21] MEDS: METHYLPREDNISOLONE 125 MG INJ IV SCH ×2 (10:01→19:46)
[2020-12-21] MEDS: THIAMINE HCL 100 MG TABLET PO SCH ×2 (10:01→19:47)
[2020-12-21] MEDS: FERROUS SULFATE 325 MG TAB PO SCH (10:01)
[2020-12-21] MEDS: BARICITINIB 2 MG TABLET PO SCH (10:03)
[2020-12-21] MEDS: CLOPIDOGREL 75 MG TABLET PO SCH (10:03)
[2020-12-21] MEDS: APIXABAN 5 MG TABLET PO SCH ×2 (10:03→19:47)
[2020-12-21] MEDS: CALCIUM 250 MG/VITAMIN D 125 IU TAB PO SCH (10:03)
--- NOTE | 2020-12-21 12:25 | P.PN ---
Subjective Date of Service: 12/21/20 Primary Care Provider: Out of town Chief Complaint: COVID-19 pneumonia Respiratory failure oxygen respiratory failure oxygen requirements are declining Review of Systems General: Weakness Respiratory: Shortness of Breath Physical Examination - Vital Signs Temperature: 97.3 F Blood Pressure: 121/68 Pulse: 63 Respirations: 18 Pulse Ox (%): 92 - Physical Exam General: Alert, Oriented x3, Cooperative Assessment & Plan - Problems (Diagnosis) (1) Pneumonia due to COVID-19 virus Current Visit: Yes Status: Acute Plan: Respiratory failure respiratory failure oxygen requirements declining add Lasix on maximum therapy on maximum therapy Physician Review: Patient Assessed, Agree with Above Assessment and Plan
[2020-12-21] MEDS: FUROSEMIDE 20 MG TABLET PO SCH (12:55)
[2020-12-21] MEDS: HYDROCODONE/APAP 7.5/325 MG TAB PO PRN (12:58)
--- NOTE | 2020-12-21 16:19 | P.PN ---
Subjective Date of Service: 12/21/20 Primary Care Provider: Out of town Chief Complaint: COVID-19 pneumonia Subjective: Improving (feeling slightly better every day, without any new complaints. Oxygen requirement decreasing) Review of Systems 10-point ROS is otherwise unremarkable Physical Examination - Vital Signs Temperature: 97.3 F Blood Pressure: 126/74 Pulse: 88 Respirations: 19 Pulse Ox (%): 90 Assessment & Plan Physician Review Additional Text: Physical exam GEN: Alert, oriented, NAD HEENT: Normal conjunctiva, sclera anicteric CV: Regular rate and rhythm, no edema Pulm: None labored respirations on 75% FiO2 HFNC ABD: Soft, nondistended. Neuro: Normal speech, normal affect Problem list Acute hypoxemic respiratory failure secondary to COVID-19 pneumonia Hypertension Hypothyroidism CAD Chronic pain syndrome. Continue steroids, vitamin supplementation Baricitinib started 12/10 Wean O2 as tolerated Status post Lonnie & Lonnie vaccine in July of this year. Continue home Synthroid, home antihypertensives as appropriate Continue [place] VTE: Eliquis Code: full Dispo: anticipate dc home in several days, with home O2 Time Spent Managing Pts Care (In Minutes): 35
[2020-12-21] MEDS: ATORVASTATIN 10 MG TAB PO SCH (19:46)
[2020-12-21] MEDS ORDERED: HYDROCODONE/APAP 7.5/325 MG TAB PO PRN ×2 (22:59→23:00)
[2020-12-22] MEDS: LEVOTHYROXINE SOD 0.112 MG TAB PO SCH (05:01)
--- NOTE | 2020-12-22 06:29 | P.PN ---
Subjective Date of Service: 12/22/20 Primary Care Provider: Out of town Chief Complaint: COVID-19 pneumonia Subjective: Improving (Breathing more comfortably, oxygen requirement improving) Review of Systems 10-point ROS is otherwise unremarkable Physical Examination - Vital Signs Temperature: 97.0 F Blood Pressure: 111/63 Pulse: 91 Respirations: 17 Pulse Ox (%): 91 Assessment & Plan Physician Review Additional Text: Physical exam GEN: Alert, oriented, NAD HEENT: Normal conjunctiva, sclera anicteric CV: Regular rate and rhythm, no edema Pulm: None labored respirations on 70% FiO2 HFNC ABD: Soft, nondistended. Neuro: Normal speech, normal affect Problem list Acute hypoxemic respiratory failure secondary to COVID-19 pneumonia Hypertension Hypothyroidism CAD Chronic pain syndrome. Continue steroids, vitamin supplementation Baricitinib started 12/10 Wean O2 as tolerated Status post Lonnie & Lonnie vaccine in July of this year. Continue home Synthroid, home antihypertensives as appropriate Continue [place] Possible trials of nasal cannula tomorrow VTE: Eliquis Code: full Dispo: anticipate dc home in several days, with home O2 Time Spent Managing Pts Care (In Minutes): 35
[2020-12-22] MEDS: SOD CHLORIDE 0.65% NASAL SPRAY NAS SCH ×2 (09:00→19:45)
[2020-12-22] MEDS: METHYLPREDNISOLONE 125 MG INJ IV SCH ×2 (09:15→19:46)
[2020-12-22] MEDS: FAMOTIDINE 20 MG TAB PO SCH ×2 (09:15→19:43)
[2020-12-22] MEDS: CLOPIDOGREL 75 MG TABLET PO SCH (09:15)
[2020-12-22] MEDS: VITAMIN D 1000 UNIT TAB PO SCH (09:16)
[2020-12-22] MEDS: AMLODIPINE 5 MG TAB PO SCH (09:16)
[2020-12-22] MEDS: THIAMINE HCL 100 MG TABLET PO SCH ×2 (09:17→19:44)
[2020-12-22] MEDS: BARICITINIB 2 MG TABLET PO SCH (09:17)
[2020-12-22] MEDS: ASPIRIN EC 81 MG TAB PO SCH (09:17)
[2020-12-22] MEDS: MULTIVITAMIN TAB PO SCH (09:17)
[2020-12-22] MEDS: FUROSEMIDE 20 MG TABLET PO SCH (09:17)
[2020-12-22] MEDS: APIXABAN 5 MG TABLET PO SCH ×2 (09:17→19:43)
[2020-12-22] MEDS: CALCIUM 250 MG/VITAMIN D 125 IU TAB PO SCH (09:18)
[2020-12-22] MEDS: ASCORBIC ACID 500 MG TABLET PO SCH ×4 (09:18→19:43)
[2020-12-22] MEDS: levoFLOXacin 500 MG TAB PO SCH (09:19)
[2020-12-22] MEDS: FERROUS SULFATE 325 MG TAB PO SCH (09:25)
[2020-12-22] MEDS: ATORVASTATIN 10 MG TAB PO SCH (19:48)
[2020-12-22] MEDS: NYSTATIN 500,000 UNIT/5 ML UDC PO SCH (22:20)
[2020-12-23 04:06] LABS: Absolute Lymphocytes (CBC) 0.9 K/uL (0.7-4.9); Basophils % 0.2 % (0-1.3); Hematocrit 41.1 % (36.0-45.0); Lymphocytes % 6.4 % (15.3-44.8); MPV 7.8 fL (7.6-11.3); RBC Red Blood Cell Count 4.36 M/uL (3.86-4.86)
[2020-12-23 04:23] LABS: Potassium 4.9 mmol/L (3.5-5.1)
[2020-12-23 05:03] LABS: Blood Morphology Comment NOT SEEN (NOT SEEN); Platelet Estimate ADEQ
[2020-12-23] MEDS: LEVOTHYROXINE SOD 0.112 MG TAB PO SCH (05:06)
--- NOTE | 2020-12-23 06:30 | P.PN ---
Subjective Date of Service: 12/23/20 Primary Care Provider: Out of town Chief Complaint: COVID-19 pneumonia Subjective: Improving (Improving, oxygen requirement decreasing, feeling "much better" today, tolerating diet with good appetite. Ambulating to bathroom) Review of Systems 10-point ROS is otherwise unremarkable Physical Examination - Vital Signs Temperature: 97.0 F Blood Pressure: 131/72 Pulse: 75 Respirations: 19 Pulse Ox (%): 90 Assessment & Plan Physician Review Additional Text: Physical exam GEN: Alert, oriented, NAD HEENT: Normal conjunctiva, sclera anicteric CV: Regular rate and rhythm, no edema Pulm: None labored respirations on 70% FiO2 HFNC ABD: Soft, nondistended. Neuro: Normal speech, normal affect Problem list Acute hypoxemic respiratory failure secondary to COVID-19 pneumonia Hypertension Hypothyroidism CAD Chronic pain syndrome. Continue steroids, vitamin supplementation Baricitinib started 12/10 Wean O2 as tolerated Status post Lonnie & Lonnie vaccine in July of this year. Continue home Synthroid, home antihypertensives as appropriate Continue [place] Possible trials of nasal cannula in the next day or 2 VTE: Eliquis Code: full Dispo: anticipate dc home in several days, with home O2 Time Spent Managing Pts Care (In Minutes): 40
[2020-12-23] MEDS: NYSTATIN 500,000 UNIT/5 ML UDC PO SCH ×3 (08:20→19:37)
[2020-12-23] MEDS: METHYLPREDNISOLONE 125 MG INJ IV SCH ×2 (08:21→19:37)
[2020-12-23] MEDS: ASCORBIC ACID 500 MG TABLET PO SCH ×4 (08:22→19:38)
[2020-12-23] MEDS: CALCIUM 250 MG/VITAMIN D 125 IU TAB PO SCH (08:22)
[2020-12-23] MEDS: FUROSEMIDE 20 MG TABLET PO SCH (08:23)
[2020-12-23] MEDS: ASPIRIN EC 81 MG TAB PO SCH (08:23)
[2020-12-23] MEDS: THIAMINE HCL 100 MG TABLET PO SCH ×2 (08:23→19:39)
[2020-12-23] MEDS: BARICITINIB 2 MG TABLET PO SCH (08:23)
[2020-12-23] MEDS: MULTIVITAMIN TAB PO SCH (08:23)
[2020-12-23] MEDS: AMLODIPINE 5 MG TAB PO SCH (08:24)
[2020-12-23] MEDS: FAMOTIDINE 20 MG TAB PO SCH ×2 (08:24→19:38)
[2020-12-23] MEDS: CLOPIDOGREL 75 MG TABLET PO SCH (08:24)
[2020-12-23] MEDS: VITAMIN D 1000 UNIT TAB PO SCH (08:24)
[2020-12-23] MEDS: FERROUS SULFATE 325 MG TAB PO SCH (08:24)
[2020-12-23] MEDS: SOD CHLORIDE 0.65% NASAL SPRAY NAS SCH ×2 (08:25→20:46)
[2020-12-23] MEDS: APIXABAN 5 MG TABLET PO SCH ×2 (09:53→19:38)
[2020-12-23] MEDS: ATORVASTATIN 10 MG TAB PO SCH (19:38)
[2020-12-23] MEDS: BENZONATATE 100 MG CAP PO PRN (19:39)
[2020-12-23] MEDS ORDERED: NYSTATIN 500,000 UNIT/5 ML UDC PO SCH (22:17)
[2020-12-24] MEDS: LEVOTHYROXINE SOD 0.112 MG TAB PO SCH (05:54)
--- NOTE | 2020-12-24 07:12 | P.PN ---
Subjective Date of Service: 12/24/20 Primary Care Provider: Out of town Chief Complaint: COVID-19 pneumonia Subjective: Improving (getting better, reports some chest pressure overnight that woke her from sleep. no further pain) Review of Systems 10-point ROS is otherwise unremarkable Physical Examination - Vital Signs Temperature: 98.1 F Blood Pressure: 129/65 Pulse: 65 Respirations: 22 Pulse Ox (%): 92 Assessment & Plan Physician Review Additional Text: Physical exam GEN: Alert, oriented, NAD HEENT: Normal conjunctiva, sclera anicteric CV: Regular rate and rhythm, no edema Pulm: None labored respirations on 70% FiO2 HFNC ABD: Soft, nondistended. Problem list Acute hypoxemic respiratory failure secondary to COVID-19 pneumonia Hypertension Hypothyroidism CAD Chronic pain syndrome. Continue steroids, vitamin supplementation Baricitinib started 12/10 Wean O2 as tolerated Status post Lonnie & Lonnie vaccine in July of this year. Continue home Synthroid, home antihypertensives as appropriate Continue [place] Possible trials of nasal cannula in the next day or 2 chest pain overnight, will check EKG and trop, h/o CAD and "silent heart attack" in the past VTE: Eliquis Code: full Dispo: anticipate dc home in several days, with home O2 Time Spent Managing Pts Care (In Minutes): 35
[2020-12-24] MEDS: VITAMIN D 1000 UNIT TAB PO SCH (08:39)
[2020-12-24] MEDS: ASCORBIC ACID 500 MG TABLET PO SCH ×4 (08:39→19:45)
[2020-12-24] MEDS: FERROUS SULFATE 325 MG TAB PO SCH (08:39)
[2020-12-24] MEDS: THIAMINE HCL 100 MG TABLET PO SCH ×2 (08:39→19:44)
[2020-12-24] MEDS: CLOPIDOGREL 75 MG TABLET PO SCH (08:39)
[2020-12-24] MEDS: FUROSEMIDE 20 MG TABLET PO SCH (08:39)
[2020-12-24] MEDS: ASPIRIN EC 81 MG TAB PO SCH (08:39)
[2020-12-24] MEDS: FAMOTIDINE 20 MG TAB PO SCH ×2 (08:40→19:45)
[2020-12-24] MEDS: MULTIVITAMIN TAB PO SCH (08:40)
[2020-12-24] MEDS: NYSTATIN 500,000 UNIT/5 ML UDC PO SCH ×3 (08:40→19:44)
[2020-12-24] MEDS: APIXABAN 5 MG TABLET PO SCH ×2 (08:40→19:45)
[2020-12-24] MEDS: AMLODIPINE 5 MG TAB PO SCH (08:40)
[2020-12-24] MEDS: METHYLPREDNISOLONE 125 MG INJ IV SCH ×2 (08:41→19:44)
[2020-12-24] MEDS: SOD CHLORIDE 0.65% NASAL SPRAY NAS SCH ×2 (08:42→19:54)
[2020-12-24] MEDS: CALCIUM 250 MG/VITAMIN D 125 IU TAB PO SCH (08:42)
[2020-12-24] MEDS: ATORVASTATIN 10 MG TAB PO SCH (19:45)
[2020-12-24] MEDS: BENZONATATE 100 MG CAP PO PRN (19:45)
[2020-12-25 04:39] LABS: Absolute Lymphocytes (CBC) 0.5 K/uL (0.7-4.9); Basophils % 0.2 % (0-1.3); Hematocrit 36.6 % (36.0-45.0); Lymphocytes % 3.8 % (15.3-44.8); RBC Red Blood Cell Count 3.87 M/uL (3.86-4.86)
[2020-12-25 05:04] LABS: BUN Blood Urea Nitrogen 30 mg/dL (7-18); Bicarbonate 29 mmol/L (21-32); Ferritin 673.2 ng/mL (8-388); Glucose Level 191 mg/dL (74-106); Potassium 5.1 mmol/L (3.5-5.1); Sodium Level 137 mmol/L (136-145)
[2020-12-25 05:46] LABS: C-Reactive Protein < 2.90 mg/L (<3.00)
[2020-12-25] MEDS: LEVOTHYROXINE SOD 0.112 MG TAB PO SCH (05:47)
--- NOTE | 2020-12-25 06:29 | P.PN ---
Subjective Date of Service: 12/25/20 Primary Care Provider: Out of town Chief Complaint: COVID-19 pneumonia Subjective: Improving (No new complaints) Review of Systems 10-point ROS is otherwise unremarkable Physical Examination - Vital Signs Temperature: 98.6 F Blood Pressure: 115/63 Pulse: 71 Respirations: 18 Pulse Ox (%): 91 Assessment & Plan Physician Review Additional Text: Physical exam GEN: Alert, oriented, NAD HEENT: Normal conjunctiva, sclera anicteric CV: Regular rate and rhythm, no edema Pulm: None labored respirations on 60% FiO2 HFNC ABD: Soft, nondistended. Problem list Acute hypoxemic respiratory failure secondary to COVID-19 pneumonia Hypertension Hypothyroidism CAD Chronic pain syndrome. Continue steroids, vitamin supplementation Baricitinib started 12/10 Wean O2 as tolerated Status post Lonnie & Lonnie vaccine in July of this year. Continue home Synthroid, home antihypertensives as appropriate Continue [place] Possible trials of nasal cannula in the next day or 2 VTE: Eliquis Code: full Dispo: anticipate dc home in 3-4 days, with home O2 Time Spent Managing Pts Care (In Minutes): 40
--- NOTE | 2020-12-25 07:46 | RAD REPORT ---
EXAM DESCRIPTION: [place] Single View12/25/2020 7:19 am CLINICAL HISTORY: Hypoxia COMPARISON: December 18, 2020 FINDINGS: No significant change in bilateral pulmonary opacities. The heart is normal size IMPRESSION: No significant change in diffuse bilateral pulmonary opacities probably pneumonia
[2020-12-25] MEDS: MULTIVITAMIN TAB PO SCH (08:37)
[2020-12-25] MEDS: THIAMINE HCL 100 MG TABLET PO SCH ×2 (08:37→19:42)
[2020-12-25] MEDS: VITAMIN D 1000 UNIT TAB PO SCH (08:37)
[2020-12-25] MEDS: FAMOTIDINE 20 MG TAB PO SCH ×2 (08:37→19:42)
[2020-12-25] MEDS: FERROUS SULFATE 325 MG TAB PO SCH (08:37)
[2020-12-25] MEDS: NYSTATIN 500,000 UNIT/5 ML UDC PO SCH ×3 (08:37→19:41)
[2020-12-25] MEDS: APIXABAN 5 MG TABLET PO SCH ×2 (08:37→19:41)
[2020-12-25] MEDS: ASPIRIN EC 81 MG TAB PO SCH (08:37)
[2020-12-25] MEDS: AMLODIPINE 5 MG TAB PO SCH (08:37)
[2020-12-25] MEDS: CLOPIDOGREL 75 MG TABLET PO SCH (08:37)
[2020-12-25] MEDS: ASCORBIC ACID 500 MG TABLET PO SCH ×4 (08:37→19:42)
[2020-12-25] MEDS: CALCIUM 250 MG/VITAMIN D 125 IU TAB PO SCH (08:38)
[2020-12-25] MEDS: FUROSEMIDE 20 MG TABLET PO SCH (08:38)
[2020-12-25] MEDS: METHYLPREDNISOLONE 125 MG INJ IV SCH ×2 (08:39→19:41)
[2020-12-25] MEDS: SOD CHLORIDE 0.65% NASAL SPRAY NAS SCH ×2 (08:40→19:44)
--- NOTE | 2020-12-25 13:14 | P.PN ---
Subjective Date of Service: 12/25/20 Primary Care Provider: Out of town Chief Complaint: COVID-19 pneumonia Doing well no new complaints still short of breath and hypoxic Review of Systems 10-point ROS is otherwise unremarkable Physical Examination - Vital Signs Temperature: 97.8 F Blood Pressure: 110/57 Pulse: 100 Respirations: 20 Pulse Ox (%): 91 - Physical Exam General: Alert, Oriented x3, Cooperative Assessment & Plan - Problems (Diagnosis) (1) Pneumonia due to COVID-19 virus Current Visit: Yes Status: Acute Plan: Respiratory failure subjectively improving oxygen requirements declining now on 60% high flow oxygen continue with present doses of steroids chest x-ray no significant change Physician Review: Patient Assessed, Agree with Above Assessment and Plan
--- NOTE | 2020-12-25 15:14 | EKG ---
Test Date: 2020-12-24 Test Time: 11:53:34 Osteopathic Medicine Teacher: JONI MEASUREMENT RESULTS: Intervals: Rate: 75 KS: 144 QRSD: 80 QT: 384 QTc: 428 [place]: P: 38 KS: 144 QRS: -7 T: 32 INTERPRETIVE STATEMENTS: Normal sinus rhythm Moderate voltage criteria for LVH, may be normal variant Nonspecific ST and T wave abnormality Abnormal ECG Compared to ECG 12/10/2020 04:26:29 ST (T wave) deviation now present Myocardial infarct finding no longer present Electronically Signed On 12-25-20 15:11:01 CDT by Darrell Recinos
[2020-12-25] MEDS: FENOFIBRATE 160 MG TAB PO SCH (16:38)
[2020-12-25] MEDS: ATORVASTATIN 10 MG TAB PO SCH (19:41)
[2020-12-25] MEDS: BENZONATATE 100 MG CAP PO PRN (19:41)
[2020-12-26] MEDS: LEVOTHYROXINE SOD 0.112 MG TAB PO SCH (05:27)
--- NOTE | 2020-12-26 06:51 | P.PN ---
Subjective Date of Service: 12/26/20 Primary Care Provider: Out of town Chief Complaint: COVID-19 pneumonia Subjective: Improving (Breathing more comfortably, reports some discomfort/pain medial aspects of eyes where tear ducts are, no swelling) Review of Systems 10-point ROS is otherwise unremarkable Physical Examination - Vital Signs Temperature: 98.2 F Blood Pressure: 120/73 Pulse: 68 Respirations: 17 Pulse Ox (%): 94 Assessment & Plan Physician Review Additional Text: Physical exam GEN: Alert, oriented, NAD HEENT: Normal conjunctiva, sclera anicteric, no tenderness on palpation of the globes, no discharge, no periorbital swelling CV: Regular rate and rhythm, no edema Pulm: Non labored respirations on 60% FiO2 HFNC ABD: Soft, nondistended. Problem list Acute hypoxemic respiratory failure secondary to COVID-19 pneumonia Hypertension Hypothyroidism CAD Chronic pain syndrome. Continue steroids, vitamin supplementation Baricitinib started 12/10 Wean O2 as tolerated Status post Lonnie & Lonnie vaccine in July of this year. Continue home Synthroid, home antihypertensives as appropriate Possible trials of nasal cannula in the next 2 days suspect tear duct blockage, recommend warm compresses, start Flonase VTE: Eliquis Code: full Dispo: anticipate dc home in 3-4 days, with home O2 Time Spent Managing Pts Care (In Minutes): 35
[2020-12-26] MEDS ORDERED: ALENDRONATE 70 MG TAB PO SCH (09:00)
[2020-12-26] MEDS: CALCIUM 250 MG/VITAMIN D 125 IU TAB PO SCH (09:00)
[2020-12-26] MEDS: ASPIRIN EC 81 MG TAB PO SCH (11:51)
[2020-12-26] MEDS: METHYLPREDNISOLONE 125 MG INJ IV SCH ×2 (11:52→19:50)
[2020-12-26] MEDS: VITAMIN D 1000 UNIT TAB PO SCH (11:52)
[2020-12-26] MEDS: APIXABAN 5 MG TABLET PO SCH ×2 (11:54→19:49)
[2020-12-26] MEDS: THIAMINE HCL 100 MG TABLET PO SCH ×2 (11:54→19:48)
[2020-12-26] MEDS: FUROSEMIDE 20 MG TABLET PO SCH (11:55)
[2020-12-26] MEDS: ASCORBIC ACID 500 MG TABLET PO SCH ×4 (11:55→19:48)
[2020-12-26] MEDS: FERROUS SULFATE 325 MG TAB PO SCH (11:56)
[2020-12-26] MEDS: NYSTATIN 500,000 UNIT/5 ML UDC PO SCH ×3 (11:57→19:48)
[2020-12-26] MEDS: AMLODIPINE 5 MG TAB PO SCH (11:58)
[2020-12-26] MEDS: FAMOTIDINE 20 MG TAB PO SCH ×2 (11:58→19:49)
[2020-12-26] MEDS: CLOPIDOGREL 75 MG TABLET PO SCH (11:59)
[2020-12-26] MEDS: SOD CHLORIDE 0.65% NASAL SPRAY NAS SCH ×2 (11:59→21:00)
[2020-12-26] MEDS: MULTIVITAMIN TAB PO SCH (12:00)
[2020-12-26] MEDS: FENOFIBRATE 160 MG TAB PO SCH (17:01)
[2020-12-26] MEDS: BENZONATATE 100 MG CAP PO PRN (19:48)
[2020-12-26] MEDS: ATORVASTATIN 10 MG TAB PO SCH (19:49)
[2020-12-26] MEDS: FLUTICASONE 50MCG NASAL SPRAY NAS SCH (21:00)
[2020-12-27 04:17] LABS: Absolute Lymphocytes (CBC) 0.6 K/uL (0.7-4.9); Basophils % 0.2 % (0-1.3); Lymphocytes % 4.8 % (15.3-44.8); MPV 7.6 fL (7.6-11.3); RBC Red Blood Cell Count 3.87 M/uL (3.86-4.86)
[2020-12-27 04:33] LABS: Potassium 5.1 mmol/L (3.5-5.1)
[2020-12-27 05:08] LABS: Blood Morphology Comment NOT SEEN (NOT SEEN); Platelet Estimate ADEQ
[2020-12-27] MEDS: LEVOTHYROXINE SOD 0.112 MG TAB PO SCH (05:36)
--- NOTE | 2020-12-27 06:42 | P.PN ---
Subjective Date of Service: 12/27/20 Primary Care Provider: Out of town Chief Complaint: COVID-19 pneumonia Subjective: Improving (Feeling better, breathing more comfortably, still dyspneic on exertion, generalized weakness. Continues with some discomfort medial aspects of eyelids, denies any crusting, no discharge) Review of Systems 10-point ROS is otherwise unremarkable Physical Examination - Vital Signs Temperature: 97.2 F Blood Pressure: 114/62 Pulse: 87 Respirations: 20 Pulse Ox (%): 91 Assessment & Plan Physician Review Additional Text: Physical exam GEN: Alert, oriented, NAD HEENT: Normal conjunctiva, sclera anicteric, no tenderness on palpation of the globes, no discharge, no periorbital swelling CV: Regular rate and rhythm, no edema Pulm: Non labored respirations on 60% FiO2 HFNC ABD: Soft, nondistended Problem list Acute hypoxemic respiratory failure secondary to COVID-19 pneumonia Hypertension Hypothyroidism CAD Chronic pain syndrome. Continue steroids, vitamin supplementation Baricitinib started 12/10 Wean O2 as tolerated Status post Lonnie & Lonnie vaccine in July of this year. Continue home Synthroid, home antihypertensives as appropriate Possible trials of nasal cannula in the next 2 days suspect tear duct blockage, recommend warm compresses, Flonase VTE: Eliquis Code: full Dispo: anticipate dc home in 1-2 days, with home O2 Time Spent Managing Pts Care (In Minutes): 35
[2020-12-27] MEDS: SOD CHLORIDE 0.65% NASAL SPRAY NAS SCH ×2 (09:00→19:48)
[2020-12-27] MEDS: FLUTICASONE 50MCG NASAL SPRAY NAS SCH ×2 (10:30→16:50)
[2020-12-27] MEDS: MULTIVITAMIN TAB PO SCH (10:31)
[2020-12-27] MEDS: VITAMIN D 1000 UNIT TAB PO SCH (10:31)
[2020-12-27] MEDS: METHYLPREDNISOLONE 125 MG INJ IV SCH (10:31)
[2020-12-27] MEDS: NYSTATIN 500,000 UNIT/5 ML UDC PO SCH ×3 (10:31→19:45)
[2020-12-27] MEDS: ASPIRIN EC 81 MG TAB PO SCH (10:32)
[2020-12-27] MEDS: APIXABAN 5 MG TABLET PO SCH ×2 (10:32→19:46)
[2020-12-27] MEDS: AMLODIPINE 5 MG TAB PO SCH (10:32)
[2020-12-27] MEDS: FERROUS SULFATE 325 MG TAB PO SCH (10:32)
[2020-12-27] MEDS: FUROSEMIDE 20 MG TABLET PO SCH (10:33)
[2020-12-27] MEDS: THIAMINE HCL 100 MG TABLET PO SCH ×2 (10:33→19:45)
[2020-12-27] MEDS: CALCIUM 250 MG/VITAMIN D 125 IU TAB PO SCH (10:33)
[2020-12-27] MEDS: FAMOTIDINE 20 MG TAB PO SCH ×2 (10:33→19:47)
[2020-12-27] MEDS: CLOPIDOGREL 75 MG TABLET PO SCH (10:33)
[2020-12-27] MEDS: ASCORBIC ACID 500 MG TABLET PO SCH ×4 (10:34→19:45)
[2020-12-27] MEDS: FENOFIBRATE 160 MG TAB PO SCH (16:50)
[2020-12-27] MEDS: ATORVASTATIN 10 MG TAB PO SCH (19:47)
[2020-12-27] MEDS: BENZONATATE 100 MG CAP PO PRN (19:47)
[2020-12-27] MEDS: METHYLPREDNISOLONE 40 MG INJ IV SCH (19:48)
[2020-12-28 05:14] LABS: Absolute Lymphocytes (CBC) 0.6 K/uL (0.7-4.9); Basophils % 0.1 % (0-1.3); Lymphocytes % 4.7 % (15.3-44.8); MPV 8.1 fL (7.6-11.3); RBC Red Blood Cell Count 3.97 M/uL (3.86-4.86)
[2020-12-28] MEDS: LEVOTHYROXINE SOD 0.112 MG TAB PO SCH (05:17)
[2020-12-28 05:44] LABS: BUN Blood Urea Nitrogen 30 mg/dL (7-18); Bicarbonate 29 mmol/L (21-32); Ferritin 695.5 ng/mL (8-388); Glucose Level 168 mg/dL (74-106); Magnesium 2.8 mg/dL (1.8-2.4); Potassium 4.4 mmol/L (3.5-5.1); Sodium Level 139 mmol/L (136-145)
[2020-12-28 05:49] LABS: C-Reactive Protein < 2.90 mg/L (<3.00)
[2020-12-28] MEDS: NYSTATIN 500,000 UNIT/5 ML UDC PO SCH ×3 (08:00→20:35)
[2020-12-28] MEDS: FUROSEMIDE 20 MG TABLET PO SCH (08:00)
[2020-12-28] MEDS: FERROUS SULFATE 325 MG TAB PO SCH (08:00)
[2020-12-28] MEDS: FAMOTIDINE 20 MG TAB PO SCH ×2 (08:00→20:32)
[2020-12-28] MEDS: ASPIRIN EC 81 MG TAB PO SCH (08:00)
[2020-12-28] MEDS: CLOPIDOGREL 75 MG TABLET PO SCH (08:00)
[2020-12-28] MEDS: CALCIUM 250 MG/VITAMIN D 125 IU TAB PO SCH (08:01)
[2020-12-28] MEDS: APIXABAN 5 MG TABLET PO SCH ×2 (08:01→20:32)
[2020-12-28] MEDS: MULTIVITAMIN TAB PO SCH (08:01)
[2020-12-28] MEDS: AMLODIPINE 5 MG TAB PO SCH (08:02)
[2020-12-28] MEDS: THIAMINE HCL 100 MG TABLET PO SCH ×2 (08:02→20:32)
[2020-12-28] MEDS: VITAMIN D 1000 UNIT TAB PO SCH (08:02)
[2020-12-28] MEDS: METHYLPREDNISOLONE 40 MG INJ IV SCH ×2 (08:03→20:31)
[2020-12-28] MEDS: ASCORBIC ACID 500 MG TABLET PO SCH ×4 (08:03→20:32)
[2020-12-28] MEDS: SOD CHLORIDE 0.65% NASAL SPRAY NAS SCH ×2 (08:03→20:35)
[2020-12-28] MEDS: FLUTICASONE 50MCG NASAL SPRAY NAS SCH ×2 (08:03→20:35)
[2020-12-28] MEDS: FENOFIBRATE 160 MG TAB PO SCH (17:00)
--- NOTE | 2020-12-28 17:25 | P.PN ---
Subjective Date of Service: 12/28/20 Primary Care Provider: Out of town Chief Complaint: COVID-19 pneumonia Patient respiratory status is gradually improving. She is not tolerating 7 L oxygen by nasal cannula. She has no complain today. Physical Examination - Vital Signs Temperature: 98.2 F Blood Pressure: 97/65 Pulse: 88 Respirations: 20 Pulse Ox (%): 90 - Physical Exam General: Alert, In no apparent distress HEENT: Sclerae nonicteric Neck: JVD not distended Respiratory: Other (No labored breathing.) Cardiovascular: Regular rate/rhythm, Normal S1 S2 Gastrointestinal: Soft and benign, Non-distended Musculoskeletal: No swelling Integumentary: No rashes Neurological: Normal strength at 5/5 x4 extr Assessment And Plan Physician Review: Patient Assessed, Agree with Above Assessment and Plan Physician Review Additional Text: Physical exam GEN: Alert, oriented, NAD HEENT: Normal conjunctiva, sclera anicteric, no tenderness on palpation of the globes, no discharge, no periorbital swelling CV: Regular rate and rhythm, no edema Pulm: Non labored respirations on 60% FiO2 HFNC ABD: Soft, nondistended Problem list Acute hypoxemic respiratory failure secondary to COVID-19 pneumonia Hypertension Hypothyroidism CAD Chronic pain syndrome. Continue steroids, vitamin supplementation Baricitinib started 12/10 Wean O2 as tolerated Status post Lonnie & Lonnie vaccine in July of this year. Continue home Synthroid, home antihypertensives as appropriate Flonase VTE: Eliquis Code: full Dispo: anticipate dc home in 1-2 days, with home O2
[2020-12-28] MEDS ORDERED: MELATONIN 5 MG TABLET PO PRN (19:30)
[2020-12-28] MEDS: BENZONATATE 100 MG CAP PO PRN (20:32)
[2020-12-28] MEDS: ATORVASTATIN 10 MG TAB PO SCH (20:32)
[2020-12-28] MEDS: ACETAMINOPHEN 500 MG TAB PO PRN (20:55)
[2020-12-29] MEDS: LEVOTHYROXINE SOD 0.112 MG TAB PO SCH (05:24)
[2020-12-29] MEDS: ACETAMINOPHEN 500 MG TAB PO PRN (05:27)
[2020-12-29] MEDS: FUROSEMIDE 20 MG TABLET PO SCH (08:33)
[2020-12-29] MEDS: ASCORBIC ACID 500 MG TABLET PO SCH ×4 (08:33→20:03)
[2020-12-29] MEDS: CALCIUM 250 MG/VITAMIN D 125 IU TAB PO SCH (08:33)
[2020-12-29] MEDS: APIXABAN 5 MG TABLET PO SCH ×2 (08:33→20:03)
[2020-12-29] MEDS: FERROUS SULFATE 325 MG TAB PO SCH (08:34)
[2020-12-29] MEDS: CLOPIDOGREL 75 MG TABLET PO SCH (08:34)
[2020-12-29] MEDS: VITAMIN D 1000 UNIT TAB PO SCH (08:34)
[2020-12-29] MEDS: AMLODIPINE 5 MG TAB PO SCH (08:34)
[2020-12-29] MEDS: FAMOTIDINE 20 MG TAB PO SCH ×2 (08:34→20:04)
[2020-12-29] MEDS: THIAMINE HCL 100 MG TABLET PO SCH ×2 (08:35→20:03)
[2020-12-29] MEDS: ASPIRIN EC 81 MG TAB PO SCH (08:35)
[2020-12-29] MEDS: NYSTATIN 500,000 UNIT/5 ML UDC PO SCH ×3 (08:35→20:02)
[2020-12-29] MEDS: FLUTICASONE 50MCG NASAL SPRAY NAS SCH ×2 (08:35→20:05)
[2020-12-29] MEDS: METHYLPREDNISOLONE 40 MG INJ IV SCH ×2 (08:35→20:02)
[2020-12-29] MEDS: MULTIVITAMIN TAB PO SCH (08:36)
[2020-12-29] MEDS: SOD CHLORIDE 0.65% NASAL SPRAY NAS SCH ×2 (08:36→20:04)
--- NOTE | 2020-12-29 16:57 | P.PN ---
Subjective Date of Service: 12/29/20 Primary Care Provider: Out of town Chief Complaint: COVID-19 pneumonia Patient tolerating 4 L of oxygen by nasal cannula. She has no complain. Physical Examination - Vital Signs Temperature: 97.7 F Blood Pressure: 107/60 Pulse: 99 Respirations: 20 Pulse Ox (%): 92 - Physical Exam General: Alert, In no apparent distress Neck: JVD not distended Respiratory: Other (Nonlabored breathing) Cardiovascular: Regular rate/rhythm, Normal S1 S2 Gastrointestinal: Soft and benign, Non-distended Musculoskeletal: No swelling Integumentary: No rashes Neurological: Normal strength at 5/5 x4 extr Assessment And Plan Physician Review: Patient Assessed, Agree with Above Assessment and Plan Physician Review Additional Text: Physical exam GEN: Alert, oriented, NAD HEENT: Normal conjunctiva, sclera anicteric, no tenderness on palpation of the globes, no discharge, no periorbital swelling CV: Regular rate and rhythm, no edema Pulm: Non labored respirations on 60% FiO2 HFNC ABD: Soft, nondistended Problem list Acute hypoxemic respiratory failure secondary to COVID-19 pneumonia Hypertension Hypothyroidism CAD Chronic pain syndrome. Continue steroids, vitamin supplementation Completed Baricitinib. Status post Lonnie & Lonnie vaccine in July of this year. Continue home Synthroid, home antihypertensives as appropriate Flonase Arrange for home oxygen for discharge. VTE: Eliquis Code: full
[2020-12-29] MEDS: FENOFIBRATE 160 MG TAB PO SCH (17:15)
[2020-12-29] MEDS: ATORVASTATIN 10 MG TAB PO SCH (20:03)
[2020-12-29 21:08] VITALS: BP 122/74; TEMP 98
[2020-12-29 21:37] VITALS: O2SAT 92
== END 2020-12-29 20:00 | disposition home or self-care (01) | DRG 177 ==
LOC: ER 20:14 → ERHOLD 22:05 → 4TH 12-11 02:29
PROVIDERS: ADMIT Internal Medicine Nephrology; ATTEND Internal Medicine
DX: U07.1 COVID-19 (principal); J12.82 Pneumonia due to coronavirus disease 2019; J96.01 Acute respiratory failure with hypoxia; I10 Essential (primary) hypertension; E03.9 Hypothyroidism, unspecified; I25.10 Atherosclerotic heart disease of native coronary artery without angina pectoris; G89.4 Chronic pain syndrome
CPT/HCPCS: 36415; 71045; 71275; 80048; 80053; 80061; 80076; 81003; 81015; 82728; 82947; 83605; 83735; 83880; 84145; 84439; 84443; 84484; 85025; 85379; 85610; 86140; 87040; 87077; 87086; 87088; 87186; 87804; 93005; 94002; 94003; 94760; 96374; 97116; 97161; 99291; 99292; J2920; J2930; J3411; J7030; Q0163; Q9967; U0003

== ENCOUNTER 2021-09-10 09:46 | Emergency (ER) | payer OTHER ==
--- OUTSIDE RECORDS SUMMARY | 2021-09-10 09:48 | XMS REPORT | Continuity of Care Document ---
:1950 Author Organization [facility] t Address [address] [place] [address] Dr. Ortega. [address] [place] [address] Care Team Providers Name Role Phone Jose Zambrano MD Primary Care Physician Borjas Attending Clinician Unavailable Julia THAKUR, SSapphire Attending Clinician Doctor Unassigned, Name Attending Clinician Unavailable Adriana THAKUR, L Attending Clinician Deyanira REESE Attending Clinician Unavailable Payers Payer Name Policy Type Policy Number Effective Date Expiration Date S ource Problems Condition Condition Condition Status Onset Resolution [...] l foot foot Allergies, Adverse Reactions, Alerts Allergy Allergy Status Severity Reaction(s) Onset Inactive Treating Comm ents Source Name Type Date Date Clinician NO KNOWN Drug Active Univers ALLERGIE Class ity of S [facility] Family History Family Member Diagnosis Comments Start Date Stop Date Source Natural father Cancer [facility] Natural mother Cancer [facility] Natural sister Cancer [facility] Social History Social Habit Start Date Stop Date Quantity Comments Source Sex Assigned At Universit y of [facility] Exposure to Not sure University SARS-CoV-2 [facility] (event) Branch Alcohol intake 2020-07-15 2020-07-15 Current [facility] 00:00:00 00:00:00 non-drinker of alcohol (finding) Tobacco use and 2020-03-01 2020-03-01 Never used Universit y of exposure 00:00:00 00:00:00 [facility] Tobacco Comment 2018-02-14 2018-02-14 Never used [facility] 00:00:00 00:00:00 Smoking Status Start Date Stop Date Source Unknown [facility] Never smoker [facility] Medications Ordered Filled Start Stop Current Ordering Indication Dosage Frequency Signature Comments Components Source Medication Medication Date Date Medication? Clinician (SIG) Name Name clopidogrel Yes 300mg Take 300 M ethodi (PLAVIX) 3-[address] 300 mg 08:45: mouth Hospita tablet 09 once. l metoprolol Yes 25mg Q.5D Take 25 mg M ethodi tartrate 3-[address] (LOPRESSOR) 08:45: (two) Hospi ta 25 mg 09 times a l tablet day. levothyroxi Yes 50ug QD Take 50 Met hodi ne 3-[address] (SYNTHROID, 08:45: mouth Hospi ta LEVOXYL) 50 09 every l mcg tablet morning. pantoprazol Yes 20mg QD Take 20 mg Methodi e 3-[address] (PROTONIX) 08:45: daily. Hospi ta 20 MG EC 09 l tablet pravastatin Yes 20mg QD Take 20 mg Methodi (PRAVACHOL) 3-[address] 20 MG 08:45: nightly. Hospita tablet 09 l methylPREDN 2019- Yes [id number] 84mg Take 21 Univers ISolone 1-09 tablets by ity of (MEDROL, 00:00: mouth [place] [facility],) 4 mg 00 SEE-INSTRU Med ical tablets CTIONS. Branch follow package directions methylPREDN 2019- Yes [id number] 84mg Take 21 Univers ISolone 1-09 tablets by ity of (MEDROL, 00:00: mouth [place] [facility],) 4 mg 00 SEE-INSTRU Med ical tablets CTIONS. Branch follow package directions methylPREDN 2019-04 Yes [id number] 84mg Take 21 Univers ISolone 1-09 tablets by ity of (MEDROL, 00:00: mouth [place] [facility],) 4 mg 00 SEE-INSTRU Med ical tablets [facility] follow package directions diclofenac 2017-04 Yes Q.25D Apply Metho di (VOLTAREN) 0-[address] 1 % gel 00:00: 4 (four) Hospit a 00 times a l day. Apply 1-2 grams to affected area 3-4 times daily. No known No Univers medications [facility] Vital Signs Vital Name Observation Time Observation Value Comments Source Systolic blood 2020-03-01 19:40:00 156 mm[Hg] [facility] Diastolic blood 2020-03-01 19:40:00 80 mm[Hg] [facility] Heart rate 2020-03-01 19:38:00 70 /min [facility] Body height 2020-03-01 19:38:00 165.1 cm [facility] Body weight 2020-03-01 19:38:00 83.915 kg [facility] BMI 2020-03-01 19:38:00 30.79 kg/m2 [facility] Systolic blood 2020-03-01 19:40:00 156 mm[Hg] [facility] Diastolic blood 2020-03-01 19:40:00 80 mm[Hg] Unive [facility] Heart rate 2020-03-01 19:38:00 70 /min [facility] Body height 2020-03-01 19:38:00 165.1 cm [facility] Body weight 2020-03-01 19:38:00 83.915 kg [facility] BMI 2020-03-01 19:38:00 30.79 kg/m2 [facility] Procedures Procedure Date / Time Performed Performing Clinician Sour e BONE DENSITY 2020-07-16 18:00:27 [facility] XR FOOT 3 VW 2020-07-15 13:18:38 [facility] BILATERAL EXTERNAL PROVIDER 2020-04-05 06:01:00 Doctor Unassigned, No [facility] [place] RECORDS Name Medical Branch REFERRAL- 2020-02-25 06:01:00 Doctor Unassigned, No [facility] REQUEST/RESPONSE Name [facility] Plan of Care Planned Activity Planned Date Details Comments Source Future Scheduled 2021-04-07 COVID-19 VACCINE (1) Met [facility] Test 05:17:26 [code = COVID-19 VACCINE (1)] Future Scheduled 2021-04-07 Hepatitis C screening [facility] Test 05:17:26 (procedure) [code = [id number]] Future Scheduled 2021-04-07 BREAST CANCER [facility] Test 05:17:26 SCREENING [code = BREAST CANCER SCREENING] Future Scheduled 2021-04-07 COLONOSCOPY SCREENING [facility] Test 05:17:26 [code = COLONOSCOPY SCREENING] Future Scheduled 2021-04-07 SHINGLES VACCINES (#1) [facility] Test 05:17:26 [code = SHINGLES VACCINES (#1)] Future Scheduled 2021-04-07 65+ P[facility]UMOCOCCAL [facility] Test 05:17:26 VACCINE (1 of 1 - PPSV23) [code = 65+ PNEUMOCOCCAL VACCINE (1 of 1 - PPSV23)] Future Scheduled 2021-04-07 INFLUENZA VACCINE [facility] Test 05:17:26 [code = INFLUENZA VACCINE] Encounters Start End Encounter Admission Attending Care Care Encounter Source Date/Time Date/Time Type Type Clinicians Facility Department ID 2020-08-03 2020-08-03 Telephone Suad, [facility] 1.2.840.1 [id number] [facility] 00:00:00 00:00:[address] 3.430.2.7 Hospit a .3.580154 l .8 2020-07-15 2020-07-15 Office Julia, 1.2.840.1 [id number] [facility] 08:04:21 09:31:56 Visit Phil Ojeda [address]2566.1.[address] 3.430.2.7 Hospit a .3.656825 l .8 2020-07-15 2020-07-15 Travel 1.2.840.1 [id number] [id number] [facility] 00:00:00 00:00:[address] 3.430.2.7 0.2.7.3.698 Ho spita .3.655575 084.8 l .8 2020-07-08 2020-07-08 Travel 1.2.840.1 1.2.290.125 [id number] [facility] 00:00:00 00:00:[address] 3.430.2.7 0.2.7.3.698 Ho spita .3.827037 084.8 l .8 2020-04-05 2020-04-05 Orders Doctor JANSEN 1.2.840.114 [id number] 00:00:00 00:00:00 Only Unassigned, KENDALL 350.1.13.10 [facility] 4.2.7.2.686 [id number] 2020-04-05 2020-04-05 Orders Doctor JANSEN 1.2.840.114 [id number] [facility] 00:00:00 00:00:00 Only Unassigned, KENDALL 350.1.13.10 ity of [facility] 4.2.7.2.686 Max as [id number] [address] 2020-03-01 2020-03-01 Office [facility] 1.2.586.897 [id number] 13:05:45 13:58:[address] [facility] 350.1.13.10 Surgical 4.2.7.2.686 Specialti [id number] [address] 2020-03-01 2020-03-01 [facility] 1.2.574.024 [id number] [facility] 13:05:45 13:58:59 Visit Jamarcus [employer] 350.1.13.10 it y of Surgical 4.2.7.2.686 Max as Specialti [id number] Ar dical [address] 2020-03-01 2020-03-01 [facility] [id number] [facility] 13:30:00 13:30:00 JAMARCUS liang [facility] 2020-02-25 2020-02-25 Orders Doctor INDERJIT 1.2.840.114 [id number] Univers 00:00:00 00:00:00 Only Unassigned, KENDALL 350.1.13.10 ity of [place] [facility] 4.2.7.2.686 Max as [id number] [place] [address] Branch Results Test Description Test Time Test Comments Results Result [facility] e Comments SCR MAMM BILATERAL 2019-04-09 - SCR MAMM BILATERAL ALBER CAD DIGITAL 09:49:39 ALBER CAD DIGITALBILATERAL DIGITAL SCREENING MAMMOGRAM 3D/2D WITH CAD: 02/17/2019CLINICAL: Asymptomatic. Digital breast tomosynthesis was performed in addition to routine CC and MLO views. Current mammographic images were evaluated by either a CrowdMobP M-Vu or a Grockit ImageMapflowcker CAD (computer aided detection system). Comparison is made to exams dated 10/16/2017 mammogram, 01/13/2015 mammogram, and 09/30/2013 mammogram - [facility]. The tissue of both breasts is predominantly [...] 04/09/2019 09:49:39Imaging Technologist: Sidra Gallegos MM, [facility] Mammography[facility] sent: BIRADS 1-2 Normal Mammogram BI-RADS: 2 Benign SCR MAMM BILATERAL 2019-03-06 - SCR MAMM BILATERAL ALBER CAD DIGITAL 14:36:35 ALBER CAD DIGITALBILATERAL DIGITAL SCREENING MAMMOGRAM 3D/2D WITH CAD: 02/17/2019CLINICAL: Asymptomatic. Digital breast tomosynthesis was performed in addition to routine CC and MLO views. Current mammographic images were evaluated by either a CrowdMobP M-Vu or a Grockit ImageMapflowcker CAD (computer aided detection system). Comparison is made to exams dated 10/16/2017 mammogram, 01/13/2015 mammogram, and 09/30/2013 mammogram - [facility]. The tissue of both breasts is predominantly fatty. There is a benign calcification in the right breast. No suspicious mass, architectural distortion, malignant type calcification, or lymph node abnormality detected. Breast architecture is stable compared to prior exams.IMPRESSION: BENIGNThere is no mammographic evidence of malignancy. Resume annual screening mammography in one year. Ariel Chang M.D. et/:03/06/2019 14:36:35 Entry: cl - 03/06/2019 14:36:35Imaging Technologist: Sidra Gallegos MM, [facility]ography[facility] sent: BIRADS 1-2 Normal Mammogram BI-RADS: 2 Benign
--- NOTE | 2021-09-10 11:01 | RAD REPORT ---
EXAM DESCRIPTION: CT - Hip Left Wo Con - 09/10/2021 10:47 am CLINICAL HISTORY: hip pain Left-sided hip pain COMPARISON: No comparisons FINDINGS: Mild lower lumbar degenerative changes are present. Symmetric sacroiliac joints are seen. No acute fracture, dislocation or AVN is observed. No soft tissue mass or hematoma. Mild atherosclero sis. IMPRESSION: No acute finding is demonstrated. All CT scans are performed using dose optimization technique as appropriate and may include automated exposure control or mA/KV adjustment according to patient size.
[2021-09-10] MEDS ORDERED: LIDOCAINE 1% MPF 2 ML AMPULE ONE (11:35)
[2021-09-10] MEDS ORDERED: TRIAMCINOLONE ACETON 40 MG/ML VIAL ONE (11:36)
[2021-09-10] MEDS ORDERED: KETOROLAC 30 MG/ML INJ ONE (11:37)
--- NOTE | 2021-09-10 12:00 | EDPHYS ---
Physician Documentation [facility] Name: Lilly Rose Age: 71 yrs Sex: Female : 1950 Arrival Date: 09/10/2021 Time: 09:47 Bed 8 Private MD: ED Physician Quita Castano HPI: 09/10 10:31 This 71 yrs old Female presents to ER via Ambulatory with complaints of Hip Pain. jr8 10:31 The patient or guardian reports pain. that occurred at home, sustained from unknown jr8 reason. The complaints affect the left hip. Onset: The symptoms/episode began/occurred gradually, 3 week(s) ago, and became worse and became persistent. Modifying factors: The symptoms are alleviated by nothing, the symptoms are aggravated by any movement, weight bearing. Associated signs and symptoms: Pertinent positives: None. Severity of symptoms: At their worst the symptoms were moderate, in the emergency department the symptoms are unchanged. The patient has not experienced similar symptoms in the past. The patient has not recently seen a physician. 11:02 insidious onset left hip pain that is not going away. History of stress fracture in jr8 past due to osteoporosis. Denies trauma . Historical: - Allergies: 10:08 No Known Allergies; ss - PMHx: 10:08 Hypertensive disorder; Myocardial infarction; ss - Immunization history:: Client reports receiving the 2nd dose of the Covid vaccine. - Social history:: Smoking status: Patient denies any tobacco usage or history of. ROS: 11:02 Eyes: Negative for injury, pain, redness, and discharge, ENT: Negative for injury, jr8 pain, and discharge, Neck: Negative for injury, pain, and swelling, Cardiovascular: Negative for chest pain, palpitations, and edema, Respiratory: Negative for shortness of breath, cough, wheezing, and pleuritic chest pain, Abdomen/GI: Negative for abdominal pain, nausea, vomiting, diarrhea, and constipation, Back: Negative for injury and pain, Skin: Negative for injury, rash, and discoloration, Neuro: Negative for headache, weakness, numbness, tingling, and seizure. 11:02 MS/extremity: Positive for pain, tenderness, of the left hip. Exam: 11:02 Constitutional: This is a well developed, well nourished patient who is awake, alert, jr8 and in no acute distress. Cardiovascular: Regular rate and rhythm with a normal S1 and S2. No gallops, murmurs, or rubs. Normal PMI, no JVD. No pulse deficits. Respiratory: Lungs have equal breath sounds bilaterally, clear to auscultation and percussion. No rales, rhonchi or wheezes noted. No increased work of breathing, no retractions or nasal flaring. Abdomen/GI: Soft, non-tender, with normal bowel sounds. No distension or tympany. No guarding or rebound. No evidence of tenderness throughout. Back: No spinal tenderness. No costovertebral tenderness. Full range of motion. Skin: Warm, dry with normal turgor. Normal color with no rashes, no lesions, and no evidence of cellulitis. Neuro: Awake and alert, GCS 15, oriented to person, place, time, and situation. Cranial nerves II-XII grossly intact. Motor strength 5/5 in all extremities. Sensory grossly intact. Cerebellar exam normal. Normal gait. 11:02 Musculoskeletal/extremity: Extremities: grossly normal except: noted in the left hip: Pain with motion and to palpation of lateral hip without notable trauma, ROM: intact in all extremities, limited active range of motion due to pain, limited passive range of motion due to pain, Circulation is intact in all extremities. Sensation intact. Vital Signs: 10:00 BP 126 / 71; Pulse 77; Resp 16; Pulse Ox 98% on R/A; vg1 10:07 BP 136 / 99; Pulse 77; Resp 17; Temp 98.6(TE); Pulse Ox 100% on R/A; Weight 83.91 kg; ss Height 5 ft. 5 in. (165.10 cm); Pain 4/10; 10:07 Body Mass Index 30.79 (83.91 kg, 165.10 cm) Procedures: 11:57 Joint Treatment: injection of left hip using Lidocaine, Kenalog 8 mg. Dressed with band jr8 aid, Patient tolerated well. MDM: 09:49 Patient medically screened. jr8 11:02 Data reviewed: vital signs, nurses notes, radiologic studies, CT scan. Data jr8 interpreted: Pulse oximetry: on room air is 100 %. Interpretation: normal. Counseling: I had a detailed discussion with the patient and/or guardian regarding: the historical points, exam findings, and any diagnostic results supporting the discharge/admit diagnosis, radiology results, the need for outpatient follow up, a family practitioner, to return to the emergency department if symptoms worsen or persist or if there are any questions or concerns that arise at home. 09/10 10:07 Order name: Hip Left Wo Con; Complete Time: 11:02 EDMS Administered Medications: 11:38 Drug: Ketorolac 15 mg Route: IM; Site: left ventrogluteal; unger 11:38 Follow up: Response: No adverse reaction unger Disposition Summary: 09/10/21 11:59 Discharge Ordered Location: Home jr8 Problem: new jr8 Symptoms: have improved jr8 Condition: Stable jr8 Diagnosis - Trochanteric bursitis, left hip jr8 Followup: jr8 - With: Private Physician - When: 1 week - Reason: Recheck today's complaints, Continuance of care, Re-evaluation by your physician Discharge Instructions: - Discharge Summary Sheet jr8 - Hip Bursitis jr8 Forms: - Medication Reconciliation Form jr8 - Thank You Letter jr8 - Antibiotic Education jr8 - Prescription Opioid Use jr8 Prescriptions: - Mobic 7.5 mg Oral Tablet - take 1 tablet by ORAL route once daily for 7 days take with food; 7 tablet; jr8 Refills: 0, Product Selection Permitted Signatures: Dispatcher [employer] GERMÁNCO Kimberley Caputo RN RN Arnie Moser PA PA jr8 Maribell-Hanna Arnold RN RN unger
--- NOTE | 2021-09-10 12:00 | ER ---
Nurse's Notes [facility] Name: Lilly Rose Age: 71 yrs Sex: Female : 1950 Arrival Date: 09/10/2021 Time: 09:47 Bed 8 Private MD: Diagnosis: Trochanteric bursitis, left hip Presentation: 09/10 10:07 Chief complaint: Patient states: L hip pain x 3 weeks. No known injury. Coronavirus ss screen: Client denies travel out of the [place] in the last 14 days. Ebola Screen: Patient denies exposure to infectious person. Patient denies travel to an Ebola-affected area in the 21 days before illness onset. Initial Sepsis Screen: Does the patient meet any 2 criteria? No. Patient's initial sepsis screen is negative. Does the patient have a suspected source of infection? No. Patient's initial sepsis screen is negative. Risk Assessment: Do you want to hurt yourself or someone else? Patient reports no desire to harm self or others. Onset of symptoms was July 22, 2021. 10:07 Method Of Arrival: Ambulatory ss 10:07 Acuity: SANDI 4 ss Historical: - Allergies: 10:08 No Known Allergies; ss - PMHx: 10:08 Hypertensive disorder; Myocardial infarction; ss - Immunization history:: Client reports receiving the 2nd dose of the Covid vaccine. - Social history:: Smoking status: Patient denies any tobacco usage or history of. Screenin:55 Abuse screen: Denies threats or abuse. Nutritional screening: No deficits noted. vg1 Tuberculosis screening: No symptoms or risk factors identified. Fall Risk No fall in past 12 months (0 pts). No secondary diagnosis (0 pts). No IV (0 pts). Ambulatory Aid- None/Bed Rest/Nurse Assist (0 pts). Gait- Normal/Bed Rest/Wheelchair (0 pts) Mental Status- Oriented to own ability (0 pts). Total Velasquez Fall Scale indicates No Risk (0-24 pts). Assessment: 09:55 General: Appears in no apparent distress. uncomfortable, Behavior is calm, cooperative. vg1 Pain: Complains of pain in Left Hip Pain currently is 4 out of 10 on a pain scale. at worst was 8 out of 10 on a pain scale. Quality of pain is described as sharp, pinching, Pain began x 3 weeks. Neuro: Level of Consciousness is awake, alert, obeys commands, Oriented to person, place, time, situation. Cardiovascular: Patient's skin is warm and dry. Pulses are palpable in right dorsalis pedis artery and left dorsalis pedis artery. Respiratory: Airway is patent Respiratory effort is even, unlabored. GI: No signs and/or symptoms were reported involving the gastrointestinal system. : No signs and/or symptoms were reported regarding the genitourinary system. EENT: No signs and/or symptoms were reported regarding the EENT system. Derm: Skin is intact, is healthy with good turgor. Musculoskeletal: Circulation, motion, and sensation intact. 10:55 Reassessment: Patient appears in no apparent distress at this time. No changes from vg1 previously documented assessment. Patient and/or family updated on plan of care and expected duration. Pain level reassessed. Patient is alert, oriented x 3, equal unlabored respirations, skin warm/dry/pink. Vital Signs: 10:00 BP 126 / 71; Pulse 77; Resp 16; Pulse Ox 98% on R/A; vg1 10:07 BP 136 / 99; Pulse 77; Resp 17; Temp 98.6(TE); Pulse Ox 100% on R/A; Weight 83.91 kg; ss Height 5 ft. 5 in. (165.10 cm); Pain 4/10; 10:07 Body Mass Index 30.79 (83.91 kg, 165.10 cm) ss ED Course: 09:47 Patient arrived in ED. ds1 09:49 Arnie Jenkins PA is PHCP. jr8 09:49 Quita Castano MD is Attending Physician. jr8 09:54 Vinita Swartz, BETTIE is Primary Nurse. vg1 09:55 Patient has correct armband on for positive identification. Placed in gown. Bed in low vg1 position. Call light in reach. Side rails up X 1. 10:08 Triage completed. ss 10:08 Arm band placed on right wrist. ss 10:49 Hip Left Wo Con In Process Unspecified. EDMS 12:54 No provider procedures requiring assistance completed. Patient did not have IV access unger during this emergency room visit. Administered Medications: 11:38 Drug: Ketorolac 15 mg Route: IM; Site: left ventrogluteal; unger 11:38 Follow up: Response: No adverse reaction unger Medication: 10:06 VIS not applicable for this client. ss Outcome: 11:59 Discharge ordered by jrMaru 12:54 Discharged to home unger 12:54 Condition: good 12:54 Discharge instructions given to 12:54 Patient left the ED. unger 12:54 Discharged to home ambulatory. vg1 12:54 Condition: good 12:54 Discharge instructions given to patient. 12:54 Instructed on discharge instructions, follow up and referral plans. medication usage, Demonstrated understanding of instructions, follow-up care, medications, Prescriptions given X 1. Signatures: Dispatcher [employer] [facility] SchmidJinny germain ds1 Kimberley Caputo RN RN Arnie Moser PA PA jr8 Vinita Swartz, RN RN vg1 Hanna Brantley RN RN
[2021-09-10 13:00] VITALS: BP 136/99; TEMP 98.6; O2SAT 100
== END 2021-09-10 12:54 | disposition home or self-care (01) ==
LOC: ER 09:46
DX: M70.62 Trochanteric bursitis, left hip (principal); I10 Essential (primary) hypertension; I25.2 Old myocardial infarction
CPT/HCPCS: 73700; 96372; 99283; J3301

== ENCOUNTER 2023-08-27 10:27 | Day surgery (SDC) | payer OTHER ==
[2023-08-23 13:14] LABS: Absolute Eosinophils 0.2 K/uL (0-0.5); Absolute Monocytes 0.6 K/uL (0.1-1.3); Absolute Neutrophil 3.3 K/uL (1.8-8.0); Basophils % 0.4 % (0-1.3); Eosinophils % 2.6 % (0-4.4); Hematocrit 40.3 % (36.0-45.0); Hemoglobin 13.3 g/dL (12.0-15.0); MCH 31.2 pg (27.0-35.0); MCV 94.4 fL (80-100); MPV 7.7 fL (7.6-11.3); Monocytes % 10.2 % (3.3-12.3); Neutrophils % 53.8 % (41.7-73.7); Nucleated Red Blood Cells % 0.1 % (0-0); Platelets 270 thou/uL (152-406); RBC Red Blood Cell Count 4.27 M/uL (3.86-4.86); Red Cell Distribution Width 14.1 % (12.1-15.2)
[2023-08-23 13:18] LABS: PT Prothrombin Time 10.4 SECONDS (9.5-12.5); PTT, Activated Partial Thromb 34.4 SECONDS (24.3-36.9); Protime INR 0.94
[2023-08-23 13:25] LABS: Anion Gap 6.7 mEq/L (5.0-15.0); Potassium 4.7 mEq/L (3.5-5.1)
--- NOTE | 2023-08-23 13:33 | RAD REPORT ---
EXAM DESCRIPTION: RAD - Chest Pa And Lat (2 Views) - 08/23/2023 1:17 pm CLINICAL HISTORY: pre op Chest pain. COMPARISON: Chest Pa And Lat (2 Views) dated 04/07/2021; Chest Pa And Lat (2 Views) dated 02/24/2021; Chest Single View dated 12/25/2020; Chest Single View dated 12/18/2020hest Pa And Lat (2 Views) dated 04/07/2021; Chest Pa And Lat (2 Views) dated 02/24/2021; Chest Single View dated 12/25/2020; Chest Singl e View dated 12/18/2020 TECHNIQUE: PA and lateral views of the chest were obtained. FINDINGS: The lungs are hyperexpanded but clear. The heart is upper limit of normal in size. No frac ture or aggressive bony process. IMPRESSION: Hyperexpanded lungs. The USPSTF recommends annual screening for lung cancer with low-dose CT (LDCT) in adults aged 50 to 8 0 years who have a 20 pack-year smoking history and currently smoke or have quit within the past 15 y ears.
--- NOTE | 2023-08-24 14:39 | EKG ---
Test Date: 2023-08-23 Test Time: 12:58:54 [employer]: NICHOLAS MEASUREMENT RESULTS: Intervals: Rate: 75 OH: 174 QRSD: 82 QT: 378 QTc: 422 [place]: P: 25 OH: 174 QRS: -7 T: 65 INTERPRETIVE STATEMENTS: Normal sinus rhythm Normal ECG Compared to ECG 12/24/2020 11:53:34 Left ventricular hypertrophy no longer present ST (T wave) deviation no longer present Electronically Signed On 08-24-23 14:36:59 CDT by Yao Estevez
[2023-08-27] MEDS ORDERED: NA CHLORIDE 0.9% 500 ML ONE (10:29)
[2023-08-27] MEDS ORDERED: LIDOCAINE 1% 20 ML MDV ONE (12:37)
[2023-08-27] MEDS ORDERED: HEPA 1000U/500MLS 2,000 UNIT/1,000 ML BAG IV ONE (12:37)
[2023-08-27] MEDS ORDERED: FENTANYL CITR 100 MCG/2 ML ONE (12:37)
[2023-08-27] MEDS ORDERED: MIDAZOLAM HCL 2 MG/2 ML INJ ONE (12:37)
[2023-08-27 18:05] VITALS: BP 114/51; O2SAT 95
--- NOTE | 2023-08-28 02:57 | OP ---
Date of Procedure: 08/27/2023 Surgeon: OTTO FAROOQ Procedure Performed: Selective bilateral carotid angiogram. Indication: Carotid stenosis. Access: Right common femoral artery, 4-Romanian, closed with manual pressure. Complications: None. Bleeding: Less than 50 mL. Total Sedation Time: 30 minutes, used fentanyl. Description Of Procedure: After risks, benefits, and alternatives were explained, the patient agreed to procedure and signed informed consent. The patient was brought into the cardiac catheterization laboratory, prepped and draped in usual sterile fashion. Then, I accessed right common femoral arter y using micropuncture kit, ultrasound guidance, fluoroscopy. Placed a 4-Romanian [place] sheath. The n took 4-Romanian 3DRC catheter into the aortic root and engaged the right common carotid artery, took standard views, and left common carotid artery and took standard views. Then removed the catheter and the sheath, and manual pressure was used for closure. Good hemostasis. Findings: 1.Right common carotid artery is normal. The right internal carotid artery has very hazy proximal s evere stenosis about 80% to 90%. The right external carotid artery has about 30% stenosis. 2.Left common carotid is normal. Left internal carotid is with mild 10% to 20% stenosis. Left exte rnal carotid is normal. Conclusion: Severe right internal carotid artery stenosis. Plan: Refer for endarterectomy. /SATISHL Voice ID: [id number] Report ID: [id number]
== END 2023-08-27 17:15 | disposition home or self-care (01) ==
LOC: CCL 10:27
PROVIDERS: ATTEND Internal Medicine
DX: I65.21 Occlusion and stenosis of right carotid artery (principal); I25.10 Atherosclerotic heart disease of native coronary artery without angina pectoris; I51.7 Cardiomegaly; I10 Essential (primary) hypertension; E78.5 Hyperlipidemia, unspecified; J44.9 Chronic obstructive pulmonary disease, unspecified; E03.9 Hypothyroidism, unspecified; Z79.82 Long term (current) use of aspirin; Z79.899 Other long term (current) drug therapy; Z82.49 Family history of ischemic heart disease and other diseases of the circulatory system
CPT/HCPCS: 93005; 85025; 80048; 36415; 85610; 85730; 71046; 36222; 76937; C1893; J2001; J3010; J7040; 99152; 99153; J2250

== ENCOUNTER 2025-01-10 13:51 | Emergency (ER) | payer OTHER ==
[2025-01-10] MEDS ORDERED: ONDANSETRON 4 MG (ODT) TAB ONE (14:18)
[2025-01-10] MEDS ORDERED: CEPHALEXIN 250 MG CAP ONE (14:25)
[2025-01-10] MEDS ORDERED: HYDROCODONE/APAP 7.5/325 MG TAB ONE (14:25)
--- NOTE | 2025-01-10 14:55 | RAD REPORT ---
EXAM: CT brain without contrast HISTORY: TRAUMA COMPARISON: None TECHNIQUE: Multiple contiguous axial images were obtained and a CT of the brain without contrast. Sag ittal and coronal reformats were performed. One or more of the following dose reduction techniques were used: Automated exposure control, adjust ment of the mA and/or kV according to patient size, and/or iterative reconstruction. FINDINGS: No evidence of hydrocephalus, intracranial hemorrhage, or extra-axial fluid collection. The brain is normal in morphology. No evidence of midline shift or areas of brain edema. The calvarium is intact. The visualized paranasal sinuses and mastoid air cells are essentially clear . EXAM: CT of the cervical spine without contrast HISTORY: Neck pain, injury TRAUMA TECHNIQUE: Multiple contiguous axial images were obtained in a CT of the cervical spine without contr ast. Sagittal and coronal reformats were performed. FINDINGS: The vertebral bodies demonstrate normal height and alignment. No evidence of acute fracture or subluxation.. Mild lower cervical spondylosis. No prevertebral soft tissue swelling is seen. Left carotid atherosclerosis. Thyroidectomy clips. The lung apices are unremarkable. COMBINED IMPRESSION: No evidence of acute intracranial abnormality. No evidence of acute osseous abnormality of the cervical spine.
--- NOTE | 2025-01-10 15:54 | RAD REPORT ---
EXAMINATION: XR LEFT FOREARM CLINICAL INDICATION: PAIN TECHNIQUE: Multiple projections of the left forearm were obtained. COMPARISON: No prior exam. 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 No acute fracture or dislocation seen.
--- NOTE | 2025-01-10 15:59 | ER ---
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 Contusion noted to left hb forehead, contusion and abrasion noted to right inner ankle, large skin tear to left forearm. Coronavirus screen: At this time, the client does not indicate any symptoms associated with coronavirus-19. Ebola Screen: No symptoms or risks identified at this time. Initial Sepsis Screen: Does the patient meet any 2 criteria? No. Patient's initial sepsis screen is negative. Does the patient have a suspected source of infection? No. Patient's initial sepsis screen is negative. Risk Assessment: Do you want to hurt yourself or someone else? Patient reports no desire to harm self or others. Onset of symptoms was January 10, 2025. 14:13 Method Of Arrival: Ambulatory hb 14:13 Acuity: SANDI 3 hb Historical: - Allergies: 14:16 No Known Allergies; hb - PMHx: 14:16 Hypertensive disorder; Myocardial infarction; hb - Immunization history:: Adult Immunizations up to date. - Infectious Disease History:: Denies. - Social history:: Smoking status: unknown. Screenin:07 [facility] ED Fall Risk Assessment (Adult) History of falling in the last 3 months, db including since admission Yes- single mechanical fall (1 pt) Confusion or Disorientation No (0 pts) Intoxicated or Sedated No (0 pts) Impaired Gait No (0 pts) Mobility Assist Device Used No (0 pt) Altered Elimination No (0 pt) Score/Fall Risk Level 0 - 2 = Low Risk. [facility] ED Fall Risk Assessment (Adult) Score/Fall Risk Level 0 - 2 = Low Risk Oriented to surroundings, Maintained a safe environment. Abuse screen: Denies threats or abuse. Denies injuries from another. Nutritional screening: No deficits noted. Tuberculosis screening: No symptoms or risk factors identified. Primary Survey: 15:30 NO uncontrolled hemorrhage observed. A: The client is awake and alert. The airway is db patent. Breathing/Chest: Spontaneous respiratory effort, equal unlabored respirations, breath sounds clear bilaterally, regular pattern, symmetrical chest rise and fall. Circulation: No external hemorrhage present. Regular and strong central pulse, skin warm/dry/normal color. Disability Client is alert. Exposure/Environment: A warming method has been applied: A warm blanket has been provided to the patient. Reassessment Breathing: Spontaneous respiratory effort, equal unlabored respirations, breath sounds clear bilaterally, regular pattern with symmetrical chest rise and fall. Circulation: No external hemorrhage noted. Regular and strong central pulse, skin warm/dry/normal color. Disability: Alert. Assessment: 15:15 Reassessment: Patient appears in no apparent distress at this time. Patient and/or db family updated on plan of care and expected duration. Pain level reassessed. Patient is alert, oriented x 3, equal unlabored respirations, skin warm/dry/pink. General: Appears in no apparent distress. comfortable, Behavior is calm, cooperative. Neuro: Level of Consciousness is awake, alert, obeys commands, Oriented to person, place, time, situation. Respiratory: Airway is patent Respiratory effort is even, unlabored, Respiratory pattern is regular, symmetrical. 16:07 Reassessment: Patient appears in no apparent distress at this time. Patient and/or db family updated on plan of care and expected duration. Pain level reassessed. Patient is alert, oriented x 3, equal unlabored respirations, skin warm/dry/pink. Vital Signs: 14:13 BP 156 / 82; Pulse 75; Resp 16; Temp 98; Pulse Ox 97% ; hb Tito Coma Score: 15:30 Eye Response: spontaneous(4). Motor Response: obeys commands(6). Verbal Response: db oriented(5). Total: 15. Trauma Score (Adult): 15:30 Eye Response: spontaneous(1); Verbal Response: oriented(1); Motor Response: obeys db commands(2); Systolic BP: > 89 mm Hg(4); Respiratory Rate: 10 to 29 per min(4); [place] Score: 15; Trauma Score: 12 ED Course: 13:53 Patient arrived in ED. ts1 13:55 [facility] sb4 13:55 Parker Cruz MD is Attending Physician. sb4 14:16 Triage completed. hb 14:16 Arm band placed on. hb 14:23 Nohemi Awad, RN is Primary Nurse. me1 14:42 Wound care: to skin tear located on dorsal aspect of left forearm was cleaned with me1 Hibiclens, irrigated with normal saline, dressed with nonstick dressing, padded with 4x4s and secured with bryan wrap., Patient tolerated well. 14:52 Head C Spine MPR Wo Con CT In Process Unspecified. EDMS 15:50 Forearm Left XRAY In Process Unspecified. EDMS 15:56 Brittany Loja, RN is Primary Nurse. db 16:07 Patient has correct armband on for positive identification. Bed in low position. Call db light in reach. Side rails up X 1. Pulse ox on. NIBP on. 16:07 Provided Education on: DISCHARGE AND FOLLOWUP. db 16:07 No provider procedures requiring assistance completed. Patient did not have IV access db during this emergency room visit. 16:08 Patient maintains SpO2 saturation greater than 95% on room air. db Administered Medications: 14:29 Drug: Hydrocodone-Acetaminophen PO (7.5 mg-325 mg) 1 tabs PO once Route: PO; me1 16:14 Follow up: Response: No adverse reaction db 14:29 Drug: Cephalexin PO 500 mg PO once Route: PO; me1 16:13 Follow up: Response: No adverse reaction db 14:29 Drug: Ondansetron PO 4 mg PO once Route: PO; me1 16:13 Follow up: Response: No adverse reaction db Medication: 16:07 VIS not applicable for this client. db Outcome: 15:58 Discharge ordered by . sb4 16:07 Discharged to home ambulatory, with family, db 16:07 Condition: stable 16:07 Discharge instructions given to patient, family, Instructed on discharge instructions, follow up and referral plans. Prescriptions given X 1, 16:14 Patient left the ED. db Signatures: Dispatcher [employer] Hanna Montague RN RN Brittany Loja, RN RN db Erica Turner, PA-C PA-C sb4 Lakeisha Dunn, VERONICA PAS ts1 Nohemi Awad, RN RN me1 Corrections: (The following items were deleted from the chart) 14:17 14:13 Acuity: SANDI 4 hb hb
--- NOTE | 2025-01-10 15:59 | EDPHYS ---
Physician Documentation [facility] Name: Lilly Rose Age: 74 yrs Sex: Female : 1950 Arrival Date: 01/10/2025 Time: 13:51 Bed 13 Private MD: ED Physician Parker Cruz HPI: 01/10 15:32 This 74 yrs old Female presents to ER via Ambulatory with complaints of Fall Injury. sb4 16:24 Patient states that she tripped and fell walking on her patio just prior to arrival. sb4 Daughter states that she falls frequently due to vertigo and unsteadiness on her feet. She did strike the side of her head and sustained several large skin tears to her left forearm. Patient reports pain where the skin tears are but has no other complaints. Denies any loss of consciousness. Historical: - Allergies: 14:16 No Known Allergies; hb - PMHx: 14:16 Hypertensive disorder; Myocardial infarction; hb - Immunization history:: Adult Immunizations up to date. - Infectious Disease History:: Denies. - Social history:: Smoking status: unknown. ROS: 16:25 Constitutional: Negative for fever, chills, and weight loss, sb4 16:25 Skin: Positive for Skin tears left forearm, 16:25 All other systems are negative, Exam: 16:25 Eyes: Extra-ocular motions intact. Periorbital areas with no swelling, redness, or sb4 edema. ENT: Mucous membranes moist. Respiratory: No increased work of breathing, no retractions or nasal flaring. Neuro: Awake and alert, GCS 15, oriented to person, place, time, and situation. Motor strength 5/5 in all extremities. Sensory grossly intact. 16:25 Constitutional: The patient appears in no acute distress, alert, awake, 16:25 Head/face: Noted is abrasion(s), that are mild, of the left yarsani, 16:25 Skin: injury, 4-5 large skin tears, dorsal aspect of left forearm, Vital Signs: 14:13 BP 156 / 82; Pulse 75; Resp 16; Temp 98; Pulse Ox 97% ; hb [place] Coma Score: 15:30 Eye Response: spontaneous(4). Motor Response: obeys commands(6). Verbal Response: db oriented(5). Total: 15. Trauma Score (Adult): 15:30 Eye Response: spontaneous(1); Verbal Response: oriented(1); Motor Response: obeys db commands(2); Systolic BP: > 89 mm Hg(4); Respiratory Rate: 10 to 29 per min(4); Tito Score: 15; Trauma Score: 12 MDM: 13:56 Medical Screening Exam initiated sb4 16:27 Differential diagnosis: abrasion, closed head injury, contusion, fracture, laceration, sb4 sprain, strain. Data reviewed: vital signs, nurses notes, radiologic studies, and as a result, I will discharge patient. Historians other than the Patient: Daughter/Son: daughter. Counseling: I had a detailed discussion with the patient and/or guardian regarding the historical points, exam findings, and any diagnostic results supporting the discharge/admit diagnosis, radiology results, the need for outpatient follow up, for definitive care, to return to the emergency department if symptoms worsen or persist or if there are any questions or concerns that arise at home. 01/10 14:16 Order name: Forearm Left XRAY; Complete Time: 15:56 sb4 01/10 14:16 Order name: Head C Spine MPR Wo Con CT; Complete Time: 14:56 sb4 01/10 14:16 Order name: Wound Care; Complete Time: 16:14 sb4 Administered Medications: 14:29 Drug: Hydrocodone-Acetaminophen PO (7.5 mg-325 mg) 1 tabs PO once Route: PO; me1 16:14 Follow up: Response: No adverse reaction db 14:29 Drug: Cephalexin PO 500 mg PO once Route: PO; me1 16:13 Follow up: Response: No adverse reaction db 14:29 Drug: Ondansetron PO 4 mg PO once Route: PO; me1 16:13 Follow up: Response: No adverse reaction db Disposition: 16:43 Co-signature as Attending Physician, Parker Cruz MD I reviewed the patient's care rn provided by the Advanced Practice Provider and agree with the diagnosis and treatment plan. Disposition Summary: 01/10/25 15:58 Discharge Ordered Notes: Location: Home sb4 Problem: new sb4 Symptoms: have improved sb4 Condition: Stable sb4 Diagnosis - Fall on same level, unspecified sb4 - Large skin tears, left forearm sb4 Followup: sb4 - With: Emergency Department - When: As needed - Reason: Worsening of condition Discharge Instructions: - Discharge Summary Sheet sb4 - Skin Tear, [id number] sb4 - Fall Prevention in the Home, Adult, [id number] sb4 - Wound Care, Adult sb4 Forms: - Antibiotic Education sb4 - Patient Portal Instructions sb4 - Leadership Thank You Letter sb4 Prescriptions: - Cephalexin 500 mg Oral capsule - take 1 capsule ORAL route every 12 hours for 7 days; 14 capsule; Refills: 0, sb4 Product Selection Permitted Signatures: Dispatcher [employer] EDMS Parker Cruz MD MD rn Baxter, Heather RN RN Brittany Gray, RN RN Erica Branham PA-C PA-C sb4 Nohemi Awad RN RN me1 Corrections: (The following items were deleted from the chart) 14:17 14:17 Ankle Right 3 View+RAD.RAD.BRZ ordered. EDMS EDMS 14:17 14:17 Head C Spine MPR Wo Con+CT.RAD.BRZ ordered. EDMS EDMS
[2025-01-10 16:39] VITALS: BP 156/82; TEMP 98; O2SAT 97
== END 2025-01-10 16:14 | disposition home or self-care (01) ==
LOC: ER 13:51
DX: S51.812A Laceration without foreign body of left forearm, initial encounter (principal); W01.0XXA Fall on same level from slipping, tripping and stumbling without subsequent striking against object, initial encounter; Y92.018 Other place in single-family (private) house as the place of occurrence of the external cause; I10 Essential (primary) hypertension; I25.2 Old myocardial infarction
CPT/HCPCS: 70450; 72125; 73090; 99284; Q0162